=== PATIENT | female | born 1935 | race African-American/Black ===

== ENCOUNTER 2017-08-26 06:46 | Inpatient (IN) | payer OTHER ==
--- NOTE | 2017-08-26 07:01 | PDOC ---
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 Pt has noticed episodic SOB at rest usually relieved with albuterol nebulizer, until this morning when she continued to have SOB despite use of the nebulizer. No cough, no fevers, no increase sputum production. No leg swelling or chest pain. Yesterday, she noticed increased urinary frequency with no hematuria. No change in bowel habits. After she called EMS, she had resolution of her symptoms in the ER. Pt has no pets. She however noticed increased SOB following contact with her new aide (who owns a dog) for the past week. 08/26/17 07:34 08/26/17 07:43 Timing/Duration: changing over time Severity: mild Associated Symptoms: reports: shortness of breath. denies: chest pain, cough, diaphoresis, fever/chills, headaches, nausea/vomiting, seizure, syncope Past History - Past Medical History Allergies/Adverse Reactions: Allergies Allergy/AdvReac Type Severity Reaction Status Date / Time Penicillins Allergy Severe Swelling Verified 08/26/17 07:01 Home Medications: Ambulatory Orders Acetaminophen [Tylenol] 325 mg PO ASDIR PRN 04/03/15 Albuterol Sulfate [Proair Hfa -] 1 - 2 inh PO TID PRN 04/03/15 Alendronate Sodium [Binosto] 70 mg PO WEEKLY 04/03/15 Digoxin [Lanoxin] 125 mcg PO DAILY 04/03/15 Fluticasone/Salmeterol [Advair 250-50 Diskus] 1 each IH BID 04/03/15 Folic Acid 1 mg PO DAILY 04/03/15 Furosemide [Lasix -] 40 mg PO DAILY 04/03/15 Loratadine 10 mg PO DAILY 04/03/15 Potassium Chloride 10 meq PO DAILY 04/03/15 Simvastatin [Zocor -] 20 mg PO HS 04/03/15 Sitagliptin Phosphate [Januvia] 50 mg PO HS 04/03/15 Solifenacin Succinate [Vesicare] 5 mg PO DAILY 04/03/15 predniSONE [Deltasone -] 5 mg PO DAILY 04/03/15 Albuterol 0.083% Nebulizer Wendy [Ventolin 0.083% Nebulizer Soln -] 1 amp IN QID PRN MDD 4 08/26/17 Gabapentin 100 mg PO DAILY 08/26/17 Losartan Potassium 25 mg PO DAILY 08/26/17 Olanzapine 5 mg PO DAILY 08/26/17 Umeclidinium [place] [Incruse Ellipta] 62.5 mcg IH DAILY 08/26/17 Anemia: Yes (WAS PLACED ON IRON,MANY YEARS AGO) Asthma: Yes Cancer: Yes (LEFT MASECTOMY,RIGHT BREAST) Cardiac Disorders: Yes CVA: No COPD: Yes CHF: Yes Dementia: No Diabetes: Yes ("PRE DIABETIC") GI Disorders: No Disorders: No HTN: Yes Hypercholesterolemia: Yes Liver Disease: No Seizures: No Thyroid Disease: No - Surgical History Abdominal Surgery: Yes (PT DOESN'T REMEMBER,MANY YEARS AGO) Appendectomy: No Cardiac Surgery: No Cholecystectomy: No Lung Surgery: No Neurologic Surgery: No Orthopedic Surgery: No - Suicide/Smoking/Psychosocial Hx Smoking Status: Yes Smoking History: Former smoker Have you smoked in the past 12 months: No Number of Cigarettes Smoked Daily: 0 If you are a former smoker, when did you quit?: 2000 Hx Alcohol Use: Yes (STOPPED 1985) Drug/Substance Use Hx: No Substance Use Type: None Hx Substance Use Treatment: No *Physical Exam - Physical Exam General Appearance: Yes: Appropriately Dressed. No: Apparent Distress HEENT: positive: EOMI, ELADIA, Symmetrical, Pharynx Normal, Other (dry mucus membanes) Neck: positive: Supple Respiratory/Chest: positive: Lungs Clear, Normal Breath Sounds. negative: Chest Tender, Respiratory Distress, Labored Respiration, Stridor, Wheezing Cardiovascular: positive: Regular Rate, S1, S2. negative: Murmur Gastrointestinal/Abdominal: positive: Normal Bowel Sounds, Soft, Tenderness ( vague tenderness worse in suprapubic area) Musculoskeletal: positive: CVA Tenderness (R). negative: Vertebral Tenderness Extremity: positive: Other (warm LLE, no pedal edema) Neurologic: positive: Fully Oriented, Alert, Normal Mood/Affect, Motor Strength 5/5 (Globally). negative: Facial Droop, Confused, Disoriented Heart Score/ECG Review - Age Age: >/= 65 - Risk Factors Risk Factors Heart Score: Yes Hx Diabetes - ECG Intrepretation Rhythm: Regular Rhythm (With few PACs) - Raysal Raysal: Normal - ECG Impressions Normal ECG: Yes Bradycardia: No Torsades tien Pointes: No WPW: No Comment:: 08/26/17 09:11 Normal sinus rhythm with premature supraventricular complexes Non specific ST and T wave abnormality Ventricular rate 80bpm, QT/QTc- 350/403 08/26/17 09:13 ED Treatment Course - LABORATORY CBC & Chemistry Diagram: 08/26/17 08:00 08/26/17 08:00 Medical Decision Making - Medical Decision Making 08/26/17 07:45 EKG, CBC, cmp, bnp, ekg, lle DUPLEX,trops, UA, urine culture, CXR Considering her age and PMHx, R/O atypical WA, PNA 08/26/17 07:52 CXR- no acute chest pathology seen 08/26/17 08:25 EKG- Sinus rhythm with premature supraventricular complexes Non secific ST and T wave abnormality Ventricular rate 80bpm QT/QTc- 350/403 08/26/17 09:14 Mild Hypernatremia- 147 and hyperchloremia-107 Awaiting BNP for fluid status 08/26/17 09:17 BUN/Cr-24/1.4 08/26/17 09:24 Will give 250mls Normal saline- pt looks clinically dry and in PRIETO, although on home lasix Will keep as ED obs Med surg, to follow for hydration state with repeat BMP, and repeat Pulmonary exam 08/26/17 09:33 Duplex of LLE - negative Pending UA- with R CVA tenderness, suprapubic tenderness and increased urinary frequency 08/26/17 09:[address] Hicks's service and spoke with Dr Enrique. She thinks patient is dehydrated, agrees with fluid and we will call her back in about 10mins to determine service for _observation - Med surg 08/26/17 10:37 Dr Enrique recommends 1/2 normal saline and admission under Dr Reese who she spoke with already Pt will be obs admission Med Surg *DC/Admit/Observation/Transfer Diagnosis at time of Disposition: SOB (shortness of breath), Hypernatremia - Discharge Dispostion Admit: Yes - Referrals Referrals: ON STAFF,NOT [Primary Care Provider] - - Patient Instructions - Post Discharge Activity - Attestations Physician Attestion: 08/26/17 10:37 Maddie Lazar MD
--- NOTE | 2017-08-26 07:21 | PDOC ---
Attending Attestation - HPI HPI: 08/26/17 08:02 The patient is a 82 year old female, with a significant past medical history of NIDDM, right breast mass excision (January 2017) , asthma/COPD 2L O2 at home, who presents to the emergency department with progressive shortness of breath for about a week. She reported use of albuterol nebulizer nightly with minimal relief since onset. She states she used a treatment this morning, but became worried when she did not notice improvement of her breathing and called ems. She states she is feeling slightly better now when compare to when she first woke up this morning. Secondarily, she reports urinary frequency. She denies chest pain, headache and dizziness. She denies fever, chills, nausea , vomit, diarrhea and constipation. She denies dysuria, urgency and hematuria. Allergies: Penicillins - Physicial Exam PE: 08/26/17 08:12 Vitals: Triage vital signs reviewed General Appearance: No acute distress, well nourished, well developed Head: Atraumatic Eyes: Pupils equal reactive round, extraocular movement intact Neck: Supple; No nuchal rigidity Chest Wall: Nontender Cardiac: (+) systolic ejection murmur. Regular rate and rhythm, no rubs, no gallops Lungs: Clear to auscultation bilateral, good air movement bilaterally Abdomen: Soft, nondistended, normal bowel sounds, nontender to palpation Extremities: (+) left lower extremity slightly larger than right LE. No pitting edema. Full range of motion to all extremities, no cyanosis, clubbing Skin: Warm and dry, no rashes or lesions, no rash, no petechiae Neuro: AOX3; Cranial Nerves 2-12 grossly intact, Strength intact to all extremities, Sensation intact to all extremities, Psych: Normal mood, normal affect - Medical Decision Making 08/26/17 08:04 Documentation prepared by Sera Colin, acting as medical assembly for Chema Oliva MD, 08/26/17 08:05 The patient is a 82 year old female, with a significant past medical history of NIDDM, right breast mass excision (January 2017), asthma/COPD 2L O2 at home, who presents to the emergency department with shortness of breath for about a week. Plan: EKG, Labs, Medications, CXR, left LE US r/o DVT 08/26/17 09:35 CXR is normal, LE duplex negative, plan for Med-Surg Obs placement for repeat labs. 08/26/17 09:48 Dr. Hicks's service was called at this time. Dr. Barajas termite control technician spoke with Dr. Lazar, Resident at 9:49 08/26/17 10:[address] 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 Carli Rome service. <Sera Colin - Last Filed: 08/26/17 10:09> - Resident Resident Name: Maddie Lazar I - ED Attending Attestation I have performed the following: I have examined & evaluated the patient, The case was reviewed & discussed with the resident, I agree w/resident's findings & plan, Exceptions are as noted - Medical Decision Making Patient with elevated creatinine. Given history of CHF and acute kidney injury case discussed with patient's pipelines supervisor. We'll observe overnight for gentle hydration with half-normal saline and reevaluation <Chema Oliva - Last Filed: 08/26/17 12:10> Heart Score/ECG Review - ECG Impressions Comment:: 08/26/17 12:09 EKG performed at 7:23 AM. Demonstrates sinus rhythm with occasional supraventricular complexes. No ST elevations no T-wave inversions. <Chema Oliva - Last Filed: 08/26/17 12:10>
[2017-08-26 08:19] LABS: HEMATOCRIT 35.8 % (32.4-45.2); MCH 28.6 pg (25.7-33.7); MCHC 33.5 g/dl (32.0-36.0); MEAN CELL VOLUME 85.5 fl (80-96); RBC 4.19 M/mm3 (3.60-5.2); RDW 15.9 % (11.6-15.6); WHITE BLOOD COUNT 10.6 K/mm3 (4.0-10.0)
[2017-08-26 08:34] LABS: ALBUMIN 3.9 g/dl (3.4-5.0); ANION GAP 6 (8-16); BILIRUBIN,TOTAL 0.4 mg/dL (0.2-1.0); BLOOD UREA NITROGEN 24 mg/dL (7-18); CALCIUM 9.3 mg/dL (8.5-10.1); CHLORIDE 109 mmol/L (98-107); CO2 32 mmol/L (21-32); CREATININE 1.4 mg/dL (0.55-1.02); GLUCOSE,RANDOM 90 mg/dL (74-106); POTASSIUM 3.5 mmol/L (3.5-5.1); SGOT/AST 27 U/L (15-37); SGPT/ALT 35 U/L (12-78); SODIUM 147 mmol/L (136-145); TOT PROT 7.1 g/dl (6.4-8.2)
[2017-08-26 08:35] LABS: ALK PHOS 52 U/L (45-117)
[2017-08-26] MEDS ORDERED: SODIUM CHLORIDE 250 ML IV STA (09:32)
[2017-08-26 10:02] LABS: N-TERMINAL BNP 372.25 pg/ml (5-450)
[2017-08-26 10:16] LABS: PLATELET ESTIMATE ADEQUATE
[2017-08-26] MEDS: SODIUM CHLORIDE 0.45% 1,000 ML IV SCH (11:29)
[2017-08-26] MEDS ORDERED: methylPREDNISolone NA SUCC 1000 MG/8 ML VIAL IVPB SCH (12:30)
[2017-08-26] MEDS ORDERED: methylPREDNISolone NA SUCC 1000 MG/8 ML VIAL IVPUSH SCH (12:34)
--- NOTE | 2017-08-26 12:34 | HP ---
Admitting History and Physical - Primary Care Physician PCP: Samantha Hicks - Admission Chief Complaint: dyspnea History of Present Illness: progressively worsening dyspnea for 4-5 days, despite nebulizer use. on home o2 lives alone no fever, no chills, no chest pain, no cough - Past Medical History Cardiovascular: Yes: CHF, HTN Pulmonary: Yes: Cancer (left breast cancer (1977)), COPD (oxygen dependent), O2 Dependent Endocrine: Yes: Diabetes Mellitus - Past Surgical History Past Surgical History: Yes: Mastectomy - Smoking History Smoking history: Former smoker Have you smoked in the past 12 months: No Aproximately how many cigarettes per day: 0 If you are a former smoker, when did you quit?: 2000 - Alcohol/Substance Use Hx Alcohol Use: Yes (STOPPED 1985) - Social History Usual Living Arrangement: Yes: Alone History of Recent Travel: No Home Medications - Allergies Allergies/Adverse Reactions: Allergies Allergy/AdvReac Type Severity Reaction Status Date / Time Penicillins Allergy Severe Swelling Verified 08/26/17 07:01 - Home Medications Home Medications: Ambulatory Orders Acetaminophen [Tylenol] 325 mg PO ASDIR PRN 04/03/15 Albuterol Sulfate [Proair Hfa -] 1 - 2 inh PO TID PRN 04/03/15 Alendronate Sodium [Binosto] 70 mg PO WEEKLY 04/03/15 Digoxin [Lanoxin] 125 mcg PO DAILY 04/03/15 Fluticasone/Salmeterol [Advair 250-50 Diskus] 1 each IH BID 04/03/15 Folic Acid 1 mg PO DAILY 04/03/15 Furosemide [Lasix -] 40 mg PO DAILY 04/03/15 Loratadine 10 mg PO DAILY 04/03/15 Potassium Chloride 10 meq PO DAILY 04/03/15 Simvastatin [Zocor -] 20 mg PO HS 04/03/15 Sitagliptin Phosphate [Januvia] 50 mg PO HS 04/03/15 Solifenacin Succinate [Vesicare] 5 mg PO DAILY 04/03/15 predniSONE [Deltasone -] 5 mg PO DAILY 04/03/15 Albuterol 0.083% Nebulizer Wendy [Ventolin 0.083% Nebulizer Soln -] 1 amp IN QID PRN MDD 4 08/26/17 Gabapentin 100 mg PO DAILY 08/26/17 Losartan Potassium 25 mg PO DAILY 08/26/17 Olanzapine 5 mg PO DAILY 08/26/17 Umeclidinium [place] [Incruse Ellipta] 62.5 mcg IH DAILY 08/26/17 Family Disease History - Family Disease History Family Disease History: CA: Brother (prostate cancer) Review of Systems - Review of Systems Constitutional: reports: Loss of Appetite. denies: Chills, Fever, Weakness Eyes: denies: No Symptoms HENT: denies: No Symptoms Cardiovascular: denies: Chest Pain, Palpitations Respiratory: reports: SOB on Exertion. denies: Hemoptysis, Wheezing Gastrointestinal: reports: No Symptoms Musculoskeletal: reports: No Symptoms Integumentary: reports: No Symptoms Neurological: reports: No Symptoms Hematology/Lymphatic: reports: No Symptoms Psychiatric: reports: No Symptoms Physical Examination Vital Signs: Vital Signs Temperature 98.5 F 08/26/17 11:33 Pulse Rate 73 08/26/17 11:33 Respiratory Rate 18 08/26/17 11:33 Blood Pressure 124/74 08/26/17 11:33 O2 Sat by Pulse Oximetry (%) 100 08/26/17 11:33 Constitutional: Yes: Well Nourished, No Distress Eyes: Yes: Conjunctiva Clear, EOM Intact HENT: Yes: Normocephalic Neck: Yes: Trachea Midline Cardiovascular: Yes: Regular Rate and Rhythm Respiratory: Yes: On Nasal O2, SOB on Exertion, Other (poor insiratory effort) Gastrointestinal: Yes: Normal Bowel Sounds, Soft Musculoskeletal: Yes: WNL Extremities: Yes: WNL Edema: No Peripheral Pulses WNL: Yes Neurological: Yes: WNL ...Motor Strength: WNL Labs: CBC, BMP 08/26/17 08:00 08/26/17 08:00 Abnormal Lab Results 08/26/17 08/26/17 08:00 08:00 WBC 10.6 H RDW 15.9 H Sodium 147 H Chloride 109 H Anion Gap 6 L BUN 24 H Creatinine 1.4 H Creatine Kinase 215 H Imaging - Results X-ray: Report Reviewed (no infiltrate) Problem List - Problems (1) Hypertension Code(s): I10 - ESSENTIAL (PRIMARY) HYPERTENSION Qualifiers: Hypertension type: essential hypertension Qualified Code(s): I10 - Essential (primary) hypertension (2) Diabetes mellitus Code(s): E11.9 - TYPE 2 DIABETES MELLITUS WITHOUT COMPLICATIONS Qualifiers: Diabetes mellitus type: type 2 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
--- NOTE | 2017-08-26 12:56 | EKG ---
Test Reason : Blood Pressure : / mmHG Vent. Rate : 080 BPM Atrial Rate : 080 BPM P-R Int : 152 ms QRS Dur : 084 ms QT Int : 350 ms P-R-T Axes : 079 039 064 degrees QTc Int : 403 ms SINUS RHYTHM WITH PREMATURE SUPRAVENTRICULAR COMPLEXES NONSPECIFIC ST AND T WAVE ABNORMALITY ABNORMAL ECG WHEN COMPARED WITH ECG OF 26-JAN-2012 09:48, PREMATURE SUPRAVENTRICULAR COMPLEXES ARE NOW PRESENT NONSPECIFIC T WAVE ABNORMALITY, IMPROVED IN LATERAL LEADS Confirmed by YG BROWN MD ([id number]) on 08/26/2017 12:56:38 PM Referred By: Confirmed By:YG BROWN MD
[2017-08-26] MEDS ORDERED: ACETAMINOPHEN 325 MG TABLET (FP) PO PRN (13:00)
--- NOTE | 2017-08-26 14:14 | CON.PULM ---
Consult Consult Specialty:: PULMONARY Referred by:: Dr. Donovan Reason for Consultation:: shortness of breath - History of Present Illness Chief Complaint: shortness of breath History of Present Illness: 82yo female with h/o DM, CHF, COPD, chronic hypoxic respiratory failure on home O2, h/o breast ca s/p resection who was admitted with worsening shortness of breath x 1 week. Denies chest pain or palpitations or cough but with increased wheezing. No fevers, chills or sweats. No sick contacts or recent travel. Lives alone. She is a remote smoker but did smoke about 1 PPD for a long time. She used her nebulizer at home without significant relief. Also maintained at home on Incruse and Advair. - History Source History Provided By: Patient, Medical Record Limitations to Obtaining History: No Limitations - Past Medical History Cardio/Vascular: Yes: CHF, HTN Pulmonary: Yes: Cancer (left breast cancer (1977)), COPD (oxygen dependent), O2 Dependent Endocrine: Yes: Diabetes Mellitus - Past Surgical History Past Surgical History: Yes: Mastectomy - Alcohol/Substance Use Hx Alcohol Use: Yes (STOPPED 1985) - Smoking History Smoking history: Former smoker Have you smoked in the past 12 months: No Aproximately how many cigarettes per day: 0 If you are a former smoker, when did you quit?: 2000 - Social History History of Recent Travel: No Home Medications - Allergies Allergies/Adverse Reactions: Allergies Allergy/AdvReac Type Severity Reaction Status Date / Time Penicillins Allergy Severe Swelling Verified 08/26/17 07:01 - Home Medications Home Medications: Ambulatory Orders Acetaminophen [Tylenol] 325 mg PO ASDIR PRN 04/03/15 Albuterol Sulfate [Proair Hfa -] 1 - 2 inh PO TID PRN 04/03/15 Alendronate Sodium [Binosto] 70 mg PO WEEKLY 04/03/15 Digoxin [Lanoxin] 125 mcg PO DAILY 04/03/15 Fluticasone/Salmeterol [Advair 250-50 Diskus] 1 each IH BID 04/03/15 Folic Acid 1 mg PO DAILY 04/03/15 Furosemide [Lasix -] 40 mg PO DAILY 04/03/15 Loratadine 10 mg PO DAILY 04/03/15 Potassium Chloride 10 meq PO DAILY 04/03/15 Simvastatin [Zocor -] 20 mg PO HS 04/03/15 Sitagliptin Phosphate [Januvia] 50 mg PO HS 04/03/15 Solifenacin Succinate [Vesicare] 5 mg PO DAILY 04/03/15 predniSONE [Deltasone -] 5 mg PO DAILY 04/03/15 Albuterol 0.083% Nebulizer Wendy [Ventolin 0.083% Nebulizer Soln -] 1 amp IN QID PRN MDD 4 08/26/17 Gabapentin 100 mg PO DAILY 08/26/17 Losartan Potassium 25 mg PO DAILY 08/26/17 Olanzapine 5 mg PO DAILY 08/26/17 Umeclidinium [place] [Incruse Ellipta] 62.5 mcg IH DAILY 08/26/17 Family Disease History - Family Disease History Family Disease History: CA: Brother (prostate cancer) Review of Systems - Review of Systems Constitutional: reports: Weakness. denies: Chills, Fever Eyes: denies: Recent Change in Vision HENT: denies: Nasal Congestion, Throat Pain Neck: denies: Stiffness, Tenderness Cardiovascular: reports: Shortness of Breath. denies: Chest Pain, Edema, Palpitations Respiratory: reports: Exercise Intolerance, SOB, SOB on Exertion, Wheezing. denies: Cough, Hemoptysis Gastrointestinal: denies: Abdominal Pain, Nausea, Vomiting Genitourinary: denies: Dysuria, Hematuria Neurological: denies: Dizziness, Headache Physical Exam Vital Sings: Vital Signs Temperature 98.5 F 08/26/17 11:33 Pulse Rate 73 08/26/17 11:33 Respiratory Rate 18 08/26/17 11:33 Blood Pressure 124/74 08/26/17 11:33 O2 Sat by Pulse Oximetry (%) 100 08/26/17 11:33 Constitutional: Yes: Calm Eyes: Yes: Conjunctiva Clear, EOM Intact HENT: Yes: Atraumatic, Normocephalic Neck: Yes: Supple, Trachea Midline Cardiovascular: Yes: Regular Rate and Rhythm Respiratory: Yes: Diminished (distant breath sounds). No: Wheezes ...Clubbing: No Gastrointestinal: Yes: Normal Bowel Sounds, Soft. 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
[2017-08-26 15:01] LABS: URINE APPEARANCE CLEAR; URINE BILIRUBIN NEGATIVE (<2.0 mg/dL); URINE COLOR LTYELLOW; URINE GLUCOSE (UA) NEGATIVE (NEGATIVE); URINE KETONE NEGATIVE (NEGATIVE); URINE LEUK ESTERASE NEGATIVE (NEGATIVE); URINE NITRITE NEGATIVE (NEGATIVE); URINE PROTEIN NEGATIVE (NEGATIVE); URINE UROBILINOGEN NEGATIVE mg/dL (0.2-1.0)
[2017-08-26] MEDS: ALBUTEROL SO4 0.083% IH SOL 2.5 MG/3 ML VIAL.NEB. NEB PRN (16:38)
--- NOTE | 2017-08-26 16:50 | CON.CARD ---
Consult Consult Specialty:: Cardiology Reason for Consultation:: sob - History of Present Illness History of Present Illness: Pt is an 82yo F with PMHx of DM, CHF, asthma/COPD (2L home oxygen) and R breast excision (Apr 2017) presenting with recurrent worsening SOB x 1 week. Pt has noticed episodic SOB at rest usually relieved with albuterol nebulizer, until this morning when she continued to have SOB despite use of the nebulizer. No cough, no fevers, no increase sputum production. No leg swelling or chest pain. Yesterday, she noticed increased urinary frequency with no hematuria. No change in bowel habits. After she called EMS, she had resolution of her symptoms in the ER. Pt has no pets. She however noticed increased SOB following contact with her new aide (who owns a dog) for the past week. - History Source History Provided By: Patient, Medical Record - Past Medical History Cardio/Vascular: Yes: Aortic Insufficiency, Aortic Stenosis, CHF, HTN, Mitral Stenosis Pulmonary: Yes: Cancer (left breast cancer (1977)), COPD (oxygen dependent), O2 Dependent Endocrine: Yes: Diabetes Mellitus - Past Surgical History Past Surgical History: Yes: Mastectomy - Alcohol/Substance Use Hx Alcohol Use: Yes (STOPPED 1985) - Smoking History Smoking history: Former smoker Have you smoked in the past 12 months: No Aproximately how many cigarettes per day: 0 If you are a former smoker, when did you quit?: 2000 - Social History History of Recent Travel: No Home Medications - Allergies Allergies/Adverse Reactions: Allergies Allergy/AdvReac Type Severity Reaction Status Date / Time Penicillins Allergy Severe Swelling Verified 08/26/17 07:01 - Home Medications Home Medications: Ambulatory Orders Acetaminophen [Tylenol] 325 mg PO ASDIR PRN 04/03/15 Albuterol Sulfate [Proair Hfa -] 1 - 2 inh PO TID PRN 04/03/15 Alendronate Sodium [Binosto] 70 mg PO WEEKLY 04/03/15 Digoxin [Lanoxin] 125 mcg PO DAILY 04/03/15 Fluticasone/Salmeterol [Advair 250-50 Diskus] 1 each IH BID 04/03/15 Folic Acid 1 mg PO DAILY 04/03/15 Furosemide [Lasix -] 40 mg PO DAILY 04/03/15 Loratadine 10 mg PO DAILY 04/03/15 Potassium Chloride 10 meq PO DAILY 04/03/15 Simvastatin [Zocor -] 20 mg PO HS 04/03/15 Sitagliptin Phosphate [Januvia] 50 mg PO HS 04/03/15 Solifenacin Succinate [Vesicare] 5 mg PO DAILY 04/03/15 predniSONE [Deltasone -] 5 mg PO DAILY 04/03/15 Albuterol 0.083% Nebulizer Wendy [Ventolin 0.083% Nebulizer Soln -] 1 amp IN QID PRN MDD 4 08/26/17 Gabapentin 100 mg PO DAILY 08/26/17 Losartan Potassium 25 mg PO DAILY 08/26/17 Olanzapine 5 mg PO DAILY 08/26/17 Umeclidinium Pearson [Incruse Ellipta] 62.5 mcg IH DAILY 08/26/17 Family Disease History - Family Disease History Family Disease History: CA: Brother (prostate cancer) Review of Systems - Review of Systems Constitutional: reports: No Symptoms Eyes: reports: No Symptoms HENT: reports: No Symptoms Neck: reports: No Symptoms Cardiovascular: reports: No Symptoms Respiratory: reports: SOB, SOB on Exertion Gastrointestinal: reports: No Symptoms Genitourinary: reports: No Symptoms Breasts: reports: No Symptoms Reported Musculoskeletal: reports: No Symptoms Integumentary: reports: No Symptoms Neurological: reports: No Symptoms Endocrine: reports: No Symptoms Hematology/Lymphatic: reports: No Symptoms Psychiatric: reports: No Symptoms Vital Signs: Vital Signs Temperature 97.8 F 08/26/17 14:24 Pulse Rate 80 08/26/17 14:24 Respiratory Rate 18 08/26/17 14:24 Blood Pressure 132/69 08/26/17 14:24 O2 Sat by Pulse Oximetry (%) 100 08/26/17 11:33 Constitutional: Yes: Well Nourished, No Distress, Calm Eyes: Yes: WNL, Conjunctiva Clear, EOM Intact HENT: Yes: WNL, Atraumatic, Normocephalic Neck: Yes: WNL, Supple, Trachea Midline Respiratory: Yes: WNL, Regular, CTA Bilaterally Gastrointestinal: Yes: WNL, Normal Bowel Sounds Renal/: Yes: WNL Cardiovascular: Yes: Regular Rate and Rhythm Heart Sounds: Yes: S1, S2 Murmur: Yes: Systolic Murmur, Diastolic Murmur Musculoskeletal: Yes: WNL Extremities: Yes: WNL Integumentary: Yes: WNL Neurological: Yes: WNL, Alert, Oriented ...Motor Strength: WNL Psychiatric: Yes: WNL, Alert, Oriented - Other Data Labs, Other Data: CBC, BMP 08/26/17 08:00 08/26/17 08:00 Troponin, BNP 08/26/17 08/26/17 08:00 13:20 Troponin I 0.05 0.08 H B-Natriuretic Peptide 372.25 Troponin, BNP 08/26/17 08/26/17 08:00 13:20 Troponin I 0.05 0.08 H B-Natriuretic Peptide 372.25 Imaging - Results Chest X-ray: Image Reviewed (no changes) EKG: Image Reviewed (sr apcs nonspec rep abn) Problem List - Problems (1) COPD (chronic obstructive pulmonary disease) Code(s): J44.9 - CHRONIC OBSTRUCTIVE PULMONARY DISEASE, UNSPECIFIED Qualifiers: COPD type: COPD with acute exacerbation Qualified Code(s): J44.1 - Chronic obstructive pulmonary disease with (acute) exacerbation (2) COPD exacerbation Code(s): J44.1 - CHRONIC OBSTRUCTIVE PULMONARY DISEASE W (ACUTE) EXACERBATION (3) Chronic respiratory failure with hypoxia Code(s): J96.11 - CHRONIC RESPIRATORY FAILURE WITH HYPOXIA (4) Dehydration Code(s): E86.0 - DEHYDRATION (5) Diabetes mellitus Code(s): E11.9 - TYPE 2 DIABETES MELLITUS WITHOUT COMPLICATIONS Qualifiers: Diabetes mellitus type: type 2 Diabetes mellitus [facility] insulin use: without termination clerk use (6) Hypernatremia Code(s): E87.0 - HYPEROSMOLALITY AND HYPERNATREMIA (7) Hypertension Code(s): I10 - ESSENTIAL (PRIMARY) HYPERTENSION Qualifiers: Hypertension type: essential hypertension Qualified Code(s): I10 - Essential (primary) hypertension (8) SOB (shortness of breath) Code(s): R06.02 - SHORTNESS OF BREATH (9) Breast cancer, right Code(s): C50.911 - MALIGNANT NEOPLASM OF UNSP SITE OF RIGHT FEMALE BREAST Qualifiers: Breast location: central portion of breast Assessment/Plan COPD exacorbation no signs of decompensated CHF - bnp wnl valvular hertt ds moderate MS moderate moderate AR DM HTN prerenal azotemia breast CA borderline elevation of TNI's Plan d/c digoxin pulmonary rx watch for chf decompensation f/u ekg and CE
[2017-08-26] MEDS: methylPREDNISolone NA SUCC 125 MG/2 ML VIAL IVPUSH SCH (18:54)
[2017-08-26] MEDS: ATORVASTATIN CA 10 MG TABLET (FP) PO SCH (21:18)
[2017-08-26] MEDS ORDERED: sitaGLIPtin PHOSPHATE 50 MG TABLET PO SCH (22:00)
[2017-08-27] MEDS: methylPREDNISolone NA SUCC 125 MG/2 ML VIAL IVPUSH SCH (01:00)
[2017-08-27] MEDS: SODIUM CHLORIDE 0.45% 1,000 ML IV SCH (03:27)
[2017-08-27 07:32] LABS: BASO % 0.1 % (0-2.0); HEMATOCRIT 34.2 % (32.4-45.2); HEMOGLOBIN 11.6 GM/dL (10.7-15.3); LYMPH % 7.1 % (8-40); MEAN CELL VOLUME 85.3 fl (80-96); MEAN PLT VOLUME 9.5 fl (7.5-11.1); MONO % 0.7 % (3.8-10.2); NEUT % 92.1 % (42.8-82.8); PLATELET COUNT 135 K/MM3 (134-434); RBC 4.01 M/mm3 (3.60-5.2); RDW 15.3 % (11.6-15.6); WHITE BLOOD COUNT 6.3 K/mm3 (4.0-10.0)
[2017-08-27 08:09] LABS: ALBUMIN 3.4 g/dl (3.4-5.0); ALK PHOS 50 U/L (45-117); ANION GAP 5 (8-16); BILIRUBIN,TOTAL 0.6 mg/dL (0.2-1.0); BLOOD UREA NITROGEN 24 mg/dL (7-18); CALCIUM 8.5 mg/dL (8.5-10.1); CHLORIDE 109 mmol/L (98-107); CO2 29 mmol/L (21-32); CREATININE 1.1 mg/dL (0.55-1.02); GLUCOSE,RANDOM 141 mg/dL (74-106); POTASSIUM 3.9 mmol/L (3.5-5.1); SGOT/AST 24 U/L (15-37); SGPT/ALT 32 U/L (12-78); SODIUM 143 mmol/L (136-145); TOT PROT 6.5 g/dl (6.4-8.2)
--- NOTE | 2017-08-27 08:20 | PN ---
Progress Note (short form) - Note Progress Note: feels much better, denies dyspnea CBC, BMP 08/27/17 06:00 08/27/17 06:00 Abnormal Lab Results 08/26/17 08/26/17 08/26/17 08:00 08:00 13:20 WBC 10.6 H RDW 15.9 H Neutrophils % Lymphocytes % Monocytes % Sodium 147 H Chloride 109 H Anion Gap 6 L BUN 24 H Creatinine 1.4 H Random Glucose Creatine Kinase 215 H 264 H CK-MB (CK-2) 3.610 H Troponin I 0.08 H Digoxin 0.4434 L 08/27/17 08/27/17 06:00 06:00 WBC RDW Neutrophils % 92.1 H Lymphocytes % 7.1 L Monocytes % 0.7 L Sodium Chloride 109 H Anion Gap 5 L BUN 24 H Creatinine 1.1 H Random Glucose 141 H Creatine Kinase CK-MB (CK-2) Troponin I Digoxin Vital Signs Period Temp Pulse Resp BP Sys/[place] Pulse Ox Last 24 Hr 97.7 F-98.5 F 73-81 18-18 124-143/69-74 96-100 S1S2 RRR lungs cta, improved aeration abd soft no edema awake alert nonfocal IMp acute COPD exacerbation HTN NIDDM CHF chronic-awaiting echo dehydration Plan steroid taper dc iv fluids at noon today physical therapy if well can switch to po prednisone in am Problem List - Problems (1) Hypertension Code(s): I10 - ESSENTIAL (PRIMARY) HYPERTENSION Qualifiers: Hypertension type: essential hypertension Qualified Code(s): I10 - Essential (primary) hypertension (2) Diabetes mellitus Code(s): E11.9 - TYPE 2 DIABETES MELLITUS WITHOUT COMPLICATIONS Qualifiers: Diabetes mellitus type: type 2 Diabetes mellitus fpc insulin use: without fpc use (3) COPD (chronic obstructive pulmonary disease) Code(s): J44.9 - CHRONIC OBSTRUCTIVE PULMONARY DISEASE, UNSPECIFIED Qualifiers: COPD type: COPD with acute exacerbation Qualified Code(s): J44.1 - Chronic obstructive pulmonary disease with (acute) exacerbation (4) SOB (shortness of breath) Code(s): R06.02 - SHORTNESS OF BREATH (5) Dehydration Code(s): E86.0 - DEHYDRATION
[2017-08-27] MEDS: POTASSIUM CHLORIDE ORAL LIQUID 20 MEQ/15 ML PO SCH (09:49)
[2017-08-27] MEDS: LORATADINE 10 MG TABLET PO SCH (09:49)
[2017-08-27] MEDS: FOLIC ACID 1 MG TABLET (FP) PO SCH (09:49)
[2017-08-27] MEDS: LOSARTAN POTASSIUM 25 MG TABLET PO SCH (09:49)
[2017-08-27] MEDS: GABAPENTIN 100 MG CAPSULE (FP) PO SCH (09:49)
[2017-08-27] MEDS: RANITIDINE HCL 150 MG TABLET (FP) PO SCH (09:49)
[2017-08-27 09:50] VITALS: BMI 20.2
--- NOTE | 2017-08-27 09:50 | CON.NEP ---
Consult Consult Specialty:: NEPHROLOGY - History of Present Illness Chief Complaint: DYSPNEA 4 DAYS History of Present Illness: 82 WITH COPD EX SMOKER IN WITH SOB X RAY CLEAR NA 147 ON HOME O2 - History Source History Provided By: Patient - Past Medical History Cardio/Vascular: Yes: CHF, HTN Pulmonary: Yes: Cancer (left breast cancer (1977)), COPD (oxygen dependent), O2 Dependent Endocrine: Yes: Diabetes Mellitus - Past Surgical History Past Surgical History: Yes: Mastectomy - Alcohol/Substance Use Hx Alcohol Use: Yes (STOPPED 1985) - Smoking History Smoking history: Former smoker Have you smoked in the past 12 months: No Aproximately how many cigarettes per day: 0 If you are a former smoker, when did you quit?: 2000 - Social History Usual Living Arrangement: Other (CLOSEST PERSON BROTHER HAS AN AID) History of Recent Travel: No Home Medications - Allergies Allergies/Adverse Reactions: Allergies Allergy/AdvReac Type Severity Reaction Status Date / Time Penicillins Allergy Severe Swelling Verified 08/26/17 07:01 - Home Medications Home Medications: Ambulatory Orders Acetaminophen [Tylenol] 325 mg PO ASDIR PRN 04/03/15 Albuterol Sulfate [Proair Hfa -] 1 - 2 inh PO TID PRN 04/03/15 Alendronate Sodium [Binosto] 70 mg PO WEEKLY 04/03/15 Digoxin [Lanoxin] 125 mcg PO DAILY 04/03/15 Fluticasone/Salmeterol [Advair 250-50 Diskus] 1 each IH BID 04/03/15 Folic Acid 1 mg PO DAILY 04/03/15 Furosemide [Lasix -] 40 mg PO DAILY 04/03/15 Loratadine 10 mg PO DAILY 04/03/15 Potassium Chloride 10 meq PO DAILY 04/03/15 Simvastatin [Zocor -] 20 mg PO HS 04/03/15 Sitagliptin Phosphate [Januvia] 50 mg PO HS 04/03/15 Solifenacin Succinate [Vesicare] 5 mg PO DAILY 04/03/15 predniSONE [Deltasone -] 5 mg PO DAILY 04/03/15 Albuterol 0.083% Nebulizer Wendy [Ventolin 0.083% Nebulizer Soln -] 1 amp IN QID PRN MDD 4 08/26/17 Gabapentin 100 mg PO DAILY 08/26/17 Losartan Potassium 25 mg PO DAILY 08/26/17 Olanzapine 5 mg PO DAILY 08/26/17 Umeclidinium Jarreau [Incruse Ellipta] 62.5 mcg IH DAILY 08/26/17 Family Disease History - Family Disease History Family Disease History: CA: Brother (prostate cancer) Nephrology Consult - Height Height: 5 ft 3 in - Weight Weight: 114 lb 4 oz - BMI Body Mass Index (BMI): 20.2 - Lab Results CBC,BMP: CBC, BMP 08/27/17 06:00 08/27/17 06:00 Anion Gap: Anion Gap Anion Gap 5 (8-16) L 08/27/17 06:00 - Imaging Chest X-ray: Report Reviewed - Physical Examination Vital Signs: Vital Signs Temperature 97.8 F 08/26/17 21:17 Pulse Rate 81 08/26/17 21:17 Respiratory Rate 18 08/26/17 23:47 Blood Pressure 143/69 08/26/17 21:17 O2 Sat by Pulse Oximetry (%) 96 08/26/17 23:47 Respiratory: Yes: Other (DECREASED AIR ENTRY BILATERALLY) Edema: No Assessment/Plan 82 WITH COPD EXACERBATION ON STEROIDS NEBS PRERENAL AZOTEMIA RESOLVED DC FLUIDS ENCOURAGE PO INTAKE OOB PT EVAL WILL FOLLOW NEEDED
[2017-08-27] MEDS: ALBUTEROL SO4 0.083% IH SOL 2.5 MG/3 ML VIAL.NEB. NEB PRN ×2 (09:52→20:44)
[2017-08-27] MEDS: SOLIFENACIN SUCCINATE 5 MG TAB (FP) PO SCH (09:54)
[2017-08-27] MEDS ORDERED: PT OWN MED DRAWER 7, Y5N ONE (09:54)
[2017-08-27] MEDS: OLANZapine 5 MG TABLET PO SCH (09:58)
[2017-08-27] MEDS ORDERED: DIGOXIN 0.125 MG TABLET (FP) PO SCH (10:00)
[2017-08-27] MEDS ORDERED: methylPREDNISolone NA SUCC 40 MG/1 ML VIAL IVPUSH SCH (10:00)
--- NOTE | 2017-08-27 11:35 | PN ---
Progress Note (short form) - Note Progress Note: PULMONARY VSS/AFEBRILE ANICTERIC/EDENTULOUS DIMINISHED BREATH SOUNDS S1S2 BS+ SOFT NO EDEMA LABS/MEDS/IMAGES/NOTES REVIEWED Acute COPD Exacerbation Chronic Hypoxic Respiratory Failure CHF HTN DM Hypercholesterolemia h/o Breast Ca - - have discontinued medrol - prednisone started - inhaled bronchodilators standing and PRN - O2 to keep SpO2 >90% - glucose controll while on systemic steroids - DVT prophylaxis - no objection to SNF rehab today Mian HINDS MD
--- NOTE | 2017-08-27 14:22 | PN ---
Progress Note, Physician History of Present Illness: Pt is an 82yo F with PMHx of DM, CHF, asthma/COPD (2L home oxygen) and R breast excision (Apr 2017) presenting with recurrent worsening SOB x 1 week. Pt has noticed episodic SOB at rest usually relieved with albuterol nebulizer, until this morning when she continued to have SOB despite use of the nebulizer. No cough, no fevers, no increase sputum production. No leg swelling or chest pain. Yesterday, she noticed increased urinary frequency with no hematuria. No change in bowel habits. After she called EMS, she had resolution of her symptoms in the ER. Pt has no pets. She however noticed increased SOB following contact with her new aide (who owns a dog) for the past week. - Current Medication List Current Medications: Active Medications Acetaminophen (Tylenol -) 325 mg PO Q6H PRN PRN Reason: PAIN Albuterol Sulfate (Ventolin 0.083% Nebulizer Soln -) 1 amp NEB QID PRN PRN Reason: SHORTNESS OF BREATH Last Admin: 08/27/17 09:52 Dose: 1 amp Atorvastatin Calcium (Lipitor -) 10 mg PO HS [facility] Last Admin: 08/26/17 21:18 Dose: 10 mg Digoxin (Lanoxin -) 0.125 mg PO DAILY [facility] Last Admin: 08/27/17 09:49 Dose: 0.125 mg Folic Acid (Folic Acid -) 1 mg PO DAILY [facility] Last Admin: 08/27/17 09:49 Dose: 1 mg Gabapentin (Neurontin -) 100 mg PO DAILY [facility] Last Admin: 08/27/17 09:49 Dose: 100 mg Loratadine (Claritin -) 10 mg PO DAILY [facility] Last Admin: 08/27/17 09:49 Dose: 10 mg Losartan Potassium (Cozaar -) 25 mg PO DAILY [facility] Last Admin: 08/27/17 09:49 Dose: 25 mg Olanzapine (Zyprexa -) 5 mg PO DAILY [facility] Last Admin: 08/27/17 09:58 Dose: 5 mg Potassium Chloride (Potassium Chloride Oral Liquid) 10 meq PO DAILY [facility] Last Admin: 08/27/17 09:49 Dose: 10 meq Prednisone (Deltasone -) 40 mg PO DAILY [facility] Ranitidine HCl (Zantac -) 150 mg PO DAILY [facility] Last Admin: 08/27/17 09:49 Dose: 150 mg Solifenacin (Vesicare -) 5 mg PO DAILY [facility] Last Admin: 08/27/17 09:54 Dose: 5 mg - Objective Vital Signs: Vital Signs Temperature 98 F 08/27/17 10:01 Pulse Rate 92 H 08/27/17 10:01 Respiratory Rate 18 08/27/17 10:01 Blood Pressure 147/78 08/27/17 10:01 O2 Sat by Pulse Oximetry (%) 96 08/27/17 07:47 Constitutional: Yes: Cachectic Eyes: Yes: WNL, Conjunctiva Clear, EOM Intact HENT: Yes: WNL, Atraumatic, Normocephalic Neck: Yes: WNL, Supple, Trachea Midline Cardiovascular: Yes: WNL, Regular Rate and Rhythm, Murmur, S2 Respiratory: Yes: WNL, Regular, CTA Bilaterally Gastrointestinal: Yes: WNL, Normal Bowel Sounds Genitourinary: Yes: WNL Musculoskeletal: Yes: WNL Extremities: Yes: WNL Edema: No Integumentary: Yes: WNL Neurological: Yes: WNL, Alert, Oriented ...Motor Strength: WNL Psychiatric: Yes: WNL Labs: CBC, BMP 08/27/17 06:00 08/27/17 06:00 Problem List - Problems (1) COPD (chronic obstructive pulmonary disease) Code(s): J44.9 - CHRONIC OBSTRUCTIVE PULMONARY DISEASE, UNSPECIFIED Qualifiers: COPD type: COPD with acute exacerbation Qualified Code(s): J44.1 - Chronic obstructive pulmonary disease with (acute) exacerbation (2) COPD exacerbation Code(s): J44.1 - CHRONIC OBSTRUCTIVE PULMONARY DISEASE W (ACUTE) EXACERBATION (3) Chronic respiratory failure with hypoxia Code(s): J96.11 - CHRONIC RESPIRATORY FAILURE WITH HYPOXIA (4) Dehydration Code(s): E86.0 - DEHYDRATION (5) Diabetes mellitus Code(s): E11.9 - TYPE 2 DIABETES MELLITUS WITHOUT COMPLICATIONS Qualifiers: Diabetes mellitus type: type 2 Diabetes mellitus user interface artist insulin use: without halfway use (6) Hypernatremia Code(s): E87.0 - HYPEROSMOLALITY AND HYPERNATREMIA (7) Hypertension Code(s): I10 - ESSENTIAL (PRIMARY) HYPERTENSION Qualifiers: Hypertension type: essential hypertension Qualified Code(s): I10 - Essential (primary) hypertension (8) SOB (shortness of breath) Code(s): R06.02 - SHORTNESS OF BREATH (9) Breast cancer, right Code(s): C50.911 - MALIGNANT NEOPLASM OF UNSP SITE OF RIGHT FEMALE BREAST Qualifiers: Breast location: central portion of breast Assessment/Plan COPD exacorbation no signs of decompensated CHF - bnp wnl valvular hertt ds moderate MS moderate moderate AR DM HTN prerenal azotemia breast CA borderline elevation of TNI's Plan d/c digoxin pulmonary rx watch for chf decompensation f/u ekg and CE
[2017-08-27] MEDS: predniSONE 20 MG TABLET (UD) PO SCH (16:54)
[2017-08-27] MEDS: ATORVASTATIN CA 10 MG TABLET (FP) PO SCH (22:07)
[2017-08-27] MEDS: BUDESONIDE/FORMETEROL FUMARATE 80/4.5 mcg INHALER IH SCH (23:23)
[2017-08-28] MEDS ORDERED: PT OWN MED DRAWER 7, Y5N ONE (09:31)
[2017-08-28] MEDS: LOSARTAN POTASSIUM 25 MG TABLET PO SCH (09:51)
[2017-08-28] MEDS: RANITIDINE HCL 150 MG TABLET (FP) PO SCH (09:51)
[2017-08-28] MEDS: POTASSIUM CHLORIDE ORAL LIQUID 20 MEQ/15 ML PO SCH (09:51)
[2017-08-28] MEDS: GABAPENTIN 100 MG CAPSULE (FP) PO SCH (09:51)
[2017-08-28] MEDS: predniSONE 20 MG TABLET (UD) PO SCH (09:51)
[2017-08-28] MEDS: SOLIFENACIN SUCCINATE 5 MG TAB (FP) PO SCH (09:51)
[2017-08-28] MEDS: FOLIC ACID 1 MG TABLET (FP) PO SCH (09:51)
[2017-08-28] MEDS: LORATADINE 10 MG TABLET PO SCH (09:51)
[2017-08-28] MEDS: BUDESONIDE/FORMETEROL FUMARATE 80/4.5 mcg INHALER IH SCH ×2 (09:55→22:28)
[2017-08-28] MEDS: OLANZapine 5 MG TABLET PO SCH (09:55)
--- NOTE | 2017-08-28 11:32 | EKG ---
Test Reason : Blood Pressure : / mmHG Vent. Rate : 089 BPM Atrial Rate : 089 BPM P-R Int : 166 ms QRS Dur : 080 ms QT Int : 284 ms P-R-T Axes : 078 015 -64 degrees QTc Int : 345 ms SINUS RHYTHM WITH PREMATURE SUPRAVENTRICULAR COMPLEXES NONSPECIFIC T WAVE ABNORMALITY ABNORMAL ECG WHEN COMPARED WITH ECG OF 26-AUG-2017 07:23, NONSPECIFIC T WAVE ABNORMALITY, WORSE IN INFERIOR LEADS QT HAS SHORTENED Confirmed by KEVIN STEVE, YG ([id number]) on 08/28/2017 11:32:17 AM Referred By: Confirmed By:YG BROWN MD
--- NOTE | 2017-08-28 12:41 | PN ---
Progress Note (short form) - Note Progress Note: PULMONARY Breathing better but not at baseline. No cough but some wheezing. Last Vital Signs Temp Pulse Resp BP Pulse Ox 98.1 F 88 16 144/70 94 L 08/28/17 10:00 08/28/17 10:00 08/28/17 10:00 08/28/17 10:00 08/28/17 10:00 Gen: NAD at rest Heart: RRR Lung: distant breath sounds Abd: soft, nontender Ext: no edema CBC, BMP 08/27/17 06:00 08/27/17 06:00 Active Medications Acetaminophen (Tylenol -) 325 mg PO Q6H PRN PRN Reason: PAIN Albuterol Sulfate (Ventolin 0.083% Nebulizer Soln -) 1 amp NEB QID PRN PRN Reason: SHORTNESS OF BREATH Last Admin: 08/27/17 20:44 Dose: 1 amp Atorvastatin Calcium (Lipitor -) 10 mg PO HS [facility] Last Admin: 08/27/17 22:07 Dose: 10 mg Budesonide/Formoterol Fumarate (Symbicort 80/4.5mcg -) 2 puff IH BID [facility] Last Admin: 08/28/17 09:55 Dose: 2 puff Folic Acid (Folic Acid -) 1 mg PO DAILY [facility] Last Admin: 08/28/17 09:51 Dose: 1 mg Gabapentin (Neurontin -) 100 mg PO DAILY [facility] Last Admin: 08/28/17 09:51 Dose: 100 mg Loratadine (Claritin -) 10 mg PO DAILY [facility] Last Admin: 08/28/17 09:51 Dose: 10 mg Losartan Potassium (Cozaar -) 25 mg PO DAILY [facility] Last Admin: 08/28/17 09:51 Dose: 25 mg Olanzapine (Zyprexa -) 5 mg PO DAILY [facility] Last Admin: 08/28/17 09:55 Dose: 5 mg Potassium Chloride (Potassium Chloride Oral Liquid) 10 meq PO DAILY [facility] Last Admin: 08/28/17 09:51 Dose: 10 meq Prednisone (Deltasone -) 40 mg PO DAILY [facility] Last Admin: 08/28/17 09:51 Dose: 40 mg Ranitidine HCl (Zantac -) 150 mg PO DAILY [facility] Last Admin: 08/28/17 09:51 Dose: 150 mg Solifenacin (Vesicare -) 5 mg PO DAILY [facility] Last Admin: 08/28/17 09:51 Dose: 5 mg A/P Acute COPD Exacerbation Chronic Hypoxic Respiratory Failure CHF HTN DM Hypercholesterolemia h/o Breast Ca - prednisone taper - inhaled bronchodilators standing and PRN - O2 to keep SpO2 >90% - glucose control while on systemic steroids - DVT prophylaxis Problem List - Problems (1) COPD exacerbation Code(s): J44.1 - CHRONIC OBSTRUCTIVE PULMONARY DISEASE W (ACUTE) EXACERBATION (2) Chronic respiratory failure with hypoxia Code(s): J96.11 - CHRONIC RESPIRATORY FAILURE WITH HYPOXIA (3) Diabetes mellitus Code(s): E11.9 - TYPE 2 DIABETES MELLITUS WITHOUT COMPLICATIONS Qualifiers: Diabetes mellitus type: type 2 Diabetes mellitus intermodal customer service insulin use: without intermodal customer service use (4) Hypertension Code(s): I10 - ESSENTIAL (PRIMARY) HYPERTENSION Qualifiers: Hypertension type: essential hypertension Qualified Code(s): I10 - Essential (primary) hypertension
--- NOTE | 2017-08-28 17:13 | PN ---
Progress Note, Physician Chief Complaint: Feels better - Current Medication List Current Medications: Active Medications Acetaminophen (Tylenol -) 325 mg PO Q6H PRN PRN Reason: PAIN Albuterol Sulfate (Ventolin 0.083% Nebulizer Soln -) 1 amp NEB QID PRN PRN Reason: SHORTNESS OF BREATH Last Admin: 08/27/17 20:44 Dose: 1 amp Atorvastatin Calcium (Lipitor -) 10 mg PO HS [facility] Last Admin: 08/27/17 22:07 Dose: 10 mg Budesonide/Formoterol Fumarate (Symbicort 80/4.5mcg -) 2 puff IH BID [facility] Last Admin: 08/28/17 09:55 Dose: 2 puff Folic Acid (Folic Acid -) 1 mg PO DAILY [facility] Last Admin: 08/28/17 09:51 Dose: 1 mg Gabapentin (Neurontin -) 100 mg PO DAILY [facility] Last Admin: 08/28/17 09:51 Dose: 100 mg Loratadine (Claritin -) 10 mg PO DAILY [facility] Last Admin: 08/28/17 09:51 Dose: 10 mg Losartan Potassium (Cozaar -) 25 mg PO DAILY [facility] Last Admin: 08/28/17 09:51 Dose: 25 mg Olanzapine (Zyprexa -) 5 mg PO DAILY [facility] Last Admin: 08/28/17 09:55 Dose: 5 mg Potassium Chloride (Potassium Chloride Oral Liquid) 10 meq PO DAILY [facility] Last Admin: 08/28/17 09:51 Dose: 10 meq Prednisone (Deltasone -) 40 mg PO DAILY [facility] Last Admin: 08/28/17 09:51 Dose: 40 mg Ranitidine HCl (Zantac -) 150 mg PO DAILY [facility] Last Admin: 08/28/17 09:51 Dose: 150 mg Solifenacin (Vesicare -) 5 mg PO DAILY [facility] Last Admin: 08/28/17 09:51 Dose: 5 mg - Objective Vital Signs: Vital Signs Temperature 97.9 F 08/28/17 14:35 Pulse Rate 91 H 08/28/17 14:35 Respiratory Rate 18 08/28/17 14:35 Blood Pressure 143/72 08/28/17 14:35 O2 Sat by Pulse Oximetry (%) 94 L 08/28/17 10:00 Constitutional: Yes: No Distress Neck: Yes: Supple Cardiovascular: Yes: Regular Rate and Rhythm, S1, S2 Respiratory: Yes: Regular, CTA Bilaterally Gastrointestinal: Yes: Normal Bowel Sounds, Soft Neurological: Yes: Alert, Unsteady Gait. No: Loss of Sensation Labs: CBC, BMP 08/27/17 06:00 08/27/17 06:00 Problem List - Problems (1) COPD (chronic obstructive pulmonary disease) Assessment/Plan: Improving, cont. steroids and nebs. Code(s): J44.9 - CHRONIC OBSTRUCTIVE PULMONARY DISEASE, UNSPECIFIED Qualifiers: COPD type: COPD with acute exacerbation Qualified Code(s): J44.1 - Chronic obstructive pulmonary disease with (acute) exacerbation (2) Unsteady gait Assessment/Plan: Will get PT eval, pt may need rehab. Code(s): R26.81 - UNSTEADINESS ON FEET
--- NOTE | 2017-08-28 17:32 | PN ---
Progress Note, Physician History of Present Illness: Cardiology coverage for Dr. Whitlock: Dyspnea improving, denies cough or wheeze. - Current Medication List Current Medications: Active Medications Acetaminophen (Tylenol -) 325 mg PO Q6H PRN PRN Reason: PAIN Albuterol Sulfate (Ventolin 0.083% Nebulizer Soln -) 1 amp NEB QID PRN PRN Reason: SHORTNESS OF BREATH Last Admin: 08/27/17 20:44 Dose: 1 amp Atorvastatin Calcium (Lipitor -) 10 mg PO HS [facility] Last Admin: 08/27/17 22:07 Dose: 10 mg Budesonide/Formoterol Fumarate (Symbicort 80/4.5mcg -) 2 puff IH BID [facility] Last Admin: 08/28/17 09:55 Dose: 2 puff Folic Acid (Folic Acid -) 1 mg PO DAILY [facility] Last Admin: 08/28/17 09:51 Dose: 1 mg Gabapentin (Neurontin -) 100 mg PO DAILY [facility] Last Admin: 08/28/17 09:51 Dose: 100 mg Loratadine (Claritin -) 10 mg PO DAILY [facility] Last Admin: 08/28/17 09:51 Dose: 10 mg Losartan Potassium (Cozaar -) 25 mg PO DAILY [facility] Last Admin: 08/28/17 09:51 Dose: 25 mg Olanzapine (Zyprexa -) 5 mg PO DAILY [facility] Last Admin: 08/28/17 09:55 Dose: 5 mg Potassium Chloride (Potassium Chloride Oral Liquid) 10 meq PO DAILY [facility] Last Admin: 08/28/17 09:51 Dose: 10 meq Prednisone (Deltasone -) 40 mg PO DAILY [facility] Last Admin: 08/28/17 09:51 Dose: 40 mg Ranitidine HCl (Zantac -) 150 mg PO DAILY [facility] Last Admin: 08/28/17 09:51 Dose: 150 mg Solifenacin (Vesicare -) 5 mg PO DAILY [facility] Last Admin: 08/28/17 09:51 Dose: 5 mg - Objective Vital Signs: Vital Signs Temperature 97.9 F 08/28/17 14:35 Pulse Rate 91 H 08/28/17 14:35 Respiratory Rate 18 08/28/17 14:35 Blood Pressure 143/72 08/28/17 14:35 O2 Sat by Pulse Oximetry (%) 94 L 08/28/17 10:00 Constitutional: Yes: No Distress, Calm, Thin Neck: Yes: Supple Cardiovascular: Yes: Regular Rate and Rhythm, Murmur Respiratory: Yes: Regular, Diminished, On Nasal O2 Gastrointestinal: Yes: Normal Bowel Sounds, Soft Edema: No Labs: CBC, BMP 08/27/17 06:00 08/27/17 06:00 - ....Imaging EKG: Report Reviewed (SR @ 89 PAC nonspec T w changes) Problem List - Problems (1) COPD exacerbation Code(s): J44.1 - CHRONIC OBSTRUCTIVE PULMONARY DISEASE W (ACUTE) EXACERBATION (2) Diabetes mellitus Code(s): E11.9 - TYPE 2 DIABETES MELLITUS WITHOUT COMPLICATIONS Qualifiers: Diabetes mellitus type: type 2 Diabetes mellitus senior living insulin use: without senior living use (3) Hypertension Code(s): I10 - ESSENTIAL (PRIMARY) HYPERTENSION Qualifiers: Hypertension type: essential hypertension Qualified Code(s): I10 - Essential (primary) hypertension (4) SOB (shortness of breath) Code(s): R06.02 - SHORTNESS OF BREATH (5) Hyperlipidemia Code(s): E78.5 - HYPERLIPIDEMIA, UNSPECIFIED Qualifiers: Hyperlipidemia type: pure hypercholesterolemia Qualified Code(s): E78.00 - Pure hypercholesterolemia, unspecified; E78.0 - Pure hypercholesterolemia Assessment/Plan 08/27/2017 Echo: Mild cLVH with low normal LV fxn, mild LAE, mod-severe MS, mod- severe AR, mild-mod 1. COPD exacerbation resolving 2. Valvular heart disease (moderate MS, moderate , moderate AR), euvolemic, bnp wnl 3. DM 4. HTN 5. Hyperlipidemia 6. h/o breast CA P:1. Oral steroid taper with GI protection, BD, O2 to keep SpO2 >90%, DVT prophylaxis 2. Continue Lipitor 10 qhs, losartan 25 qd
[2017-08-28] MEDS: ALBUTEROL SO4 0.083% IH SOL 2.5 MG/3 ML VIAL.NEB. NEB PRN (19:29)
--- NOTE | 2017-08-28 20:25 | PN ---
Progress Note (short form) - Note Progress Note: Renal Follow up. Elderly female with history of hypertension, diet controlled diabetes mellitus, stage 3 chronic kidney disease and COPD admitted with exacerbation of asthma/ COPD. She also has a history of bilateral breast cancer, s/p radical left mastectomy and right lumpectomy, heart failure and major depressive illness. Patient is feeling better today especially after the nebulizer treatment. Vitals; Vital Signs (72 hours) 08/26/17 08/26/17 08/26/17 07:01 07:45 10:39 Temperature 97.6 F 97.8 F Pulse Rate 90 80 Pulse Rate [ Apical] Respiratory 16 18 Rate Blood Pressure 116/68 132/69 Blood Pressure [Left Arm] O2 Sat by Pulse 98 99 100 Oximetry (%) 08/26/17 08/26/17 08/26/17 11:33 14:24 18:00 Temperature 98.5 F 97.8 F 97.7 F Pulse Rate 80 75 Pulse Rate [ 73 Apical] Respiratory 18 18 18 Rate Blood Pressure 132/69 131/71 Blood Pressure 124/74 [Left Arm] O2 Sat by Pulse 100 100 Oximetry (%) 08/26/17 08/26/17 08/27/17 21:17 23:47 07:47 Temperature 97.8 F Pulse Rate 81 Pulse Rate [ Apical] Respiratory 18 18 18 Rate Blood Pressure 143/69 Blood Pressure [Left Arm] O2 Sat by Pulse 96 96 Oximetry (%) 08/27/17 08/27/17 08/27/17 09:49 10:01 14:27 Temperature 98 F 97.9 F Pulse Rate 83 92 H 88 Pulse Rate [ Apical] Respiratory 18 20 Rate Blood Pressure 147/78 130/69 Blood Pressure [Left Arm] O2 Sat by Pulse Oximetry (%) 08/27/17 08/27/17 08/27/17 18:14 22:10 22:42 Temperature 98.4 F 97.9 F Pulse Rate 92 H 87 Pulse Rate [ Apical] Respiratory 24 20 20 Rate Blood Pressure 141/64 133/68 Blood Pressure [Left Arm] O2 Sat by Pulse 96 Oximetry (%) 08/28/17 08/28/17 08/28/17 05:01 10:00 14:35 Temperature 98.1 F 97.9 F Pulse Rate 88 91 H Pulse Rate [ Apical] Respiratory 20 16 18 Rate Blood Pressure 144/70 143/72 Blood Pressure [Left Arm] O2 Sat by Pulse 96 94 L Oximetry (%) 08/28/17 18:00 Temperature 98.3 F Pulse Rate 87 Pulse Rate [ Apical] Respiratory 20 Rate Blood Pressure 128/72 Blood Pressure [Left Arm] O2 Sat by Pulse Oximetry (%) Lungs; reduced air entry globally Heart: S1 S2 Regular, no gallop Abd: Full, soft, non-tender, BS normal. Ext: NO edema Labs; Laboratory Results - last 24 hr 08/28/17 16:47 POC Glucometer 107 CBC,CMP WBC 6.3 K/mm3 (4.0-10.0) D 08/27/17 06:00 RBC 4.01 M/mm3 (3.60-5.2) 08/27/17 06:00 Hgb 11.6 GM/dL (10.7-15.3) 08/27/17 06:00 Hct 34.2 % (32.4-45.2) 08/27/17 06:00 MCV 85.3 fl (80-96) 08/27/17 06:00 MCH 29.0 pg (25.7-33.7) 08/27/17 06:00 MCHC 34.0 g/dl (32.0-36.0) 08/27/17 06:00 RDW 15.3 % (11.6-15.6) 08/27/17 06:00 Plt Count 135 K/MM3 (134-434) D 08/27/17 06:00 MPV 9.5 fl (7.5-11.1) 08/27/17 06:00 Total Counted 100 08/26/17 08:00 Neutrophils % 92.1 % (42.8-82.8) H 08/27/17 06:00 Neutrophils % (Manual) 69.0 % (42.8-82.8) 08/26/17 08:00 Band Neutrophils % 2.0 % (0-10) 08/26/17 08:00 Lymphocytes % 7.1 % (8-40) L 08/27/17 06:00 Lymphocytes % (Manual) 19.0 % (8-40) 08/26/17 08:00 Monocytes % 0.7 % (3.8-10.2) L 08/27/17 06:00 Monocytes % (Manual) 9 % (3.8-10.2) 08/26/17 08:00 Eosinophils % 0.0 % (0-4.5) 08/27/17 06:00 Basophils % 0.1 % (0-2.0) 08/27/17 06:00 Basophils % (Manual) 1.0 % (0-2.0) 08/26/17 08:00 Differential Comment Man diff performed 08/26/17 08:00 Platelet Estimate Adequate 08/26/17 08:00 Platelet Comment Slt plt clumping 08/26/17 08:00 Sodium 143 mmol/L (136-145) 08/27/17 06:00 Potassium 3.9 mmol/L (3.5-5.1) 08/27/17 06:00 Chloride 109 mmol/L (98-107) H 08/27/17 06:00 Carbon Dioxide 29 mmol/L (21-32) 08/27/17 06:00 Anion Gap 5 (8-16) L 08/27/17 06:00 BUN 24 mg/dL (7-18) H 08/27/17 06:00 Creatinine 1.1 mg/dL (0.55-1.02) H 08/27/17 06:00 Creat Clearance w eGFR 47.32 (>60) 08/27/17 06:00 POC Glucometer 107 UNITS (80-120) 08/28/17 16:47 Random Glucose 141 mg/dL (74-106) H 08/27/17 06:00 Calcium 8.5 mg/dL (8.5-10.1) 08/27/17 06:00 Total Bilirubin 0.6 mg/dL (0.2-1.0) D 08/27/17 06:00 AST 24 U/L (15-37) 08/27/17 06:00 ALT 32 U/L (12-78) 08/27/17 06:00 Alkaline Phosphatase 50 U/L (45-117) 08/27/17 06:00 Creatine Kinase 570 IU/L (26-192) H 08/27/17 15:10 Creatine Kinase Index 1.1 % (0.0-5.0) 08/27/17 15:10 CK-MB (CK-2) 6.298 ng/mL (0.5-3.6) H 08/27/17 15:10 Troponin I 0.07 ng/ml (0.00-0.05) H 08/27/17 15:10 B-Natriuretic Peptide 372.25 pg/ml (5-450) 08/26/17 08:00 Total Protein 6.5 g/dl (6.4-8.2) 08/27/17 06:00 Albumin 3.4 g/dl (3.4-5.0) 08/27/17 06:00 A/P: Elderly female with hypertension, type 2 diabetes mellitus and asthma/copd admitted with decompensated chronic obstructive airway disease and rhabdomyolysis. Continue with gentle iv fluid as tolerated. Will follow
[2017-08-28] MEDS: ATORVASTATIN CA 10 MG TABLET (FP) PO SCH (22:28)
[2017-08-29] MEDS ORDERED: PT OWN MED DRAWER 7, Y5N ONE ×2 (10:07→10:18)
[2017-08-29] MEDS: FOLIC ACID 1 MG TABLET (FP) PO SCH (10:09)
[2017-08-29] MEDS: RANITIDINE HCL 150 MG TABLET (FP) PO SCH (10:10)
[2017-08-29] MEDS: LORATADINE 10 MG TABLET PO SCH (10:10)
[2017-08-29] MEDS: LOSARTAN POTASSIUM 25 MG TABLET PO SCH (10:10)
[2017-08-29] MEDS: predniSONE 20 MG TABLET (UD) PO SCH (10:10)
[2017-08-29] MEDS: SOLIFENACIN SUCCINATE 5 MG TAB (FP) PO SCH (10:10)
[2017-08-29] MEDS: POTASSIUM CHLORIDE ORAL LIQUID 20 MEQ/15 ML PO SCH (10:10)
[2017-08-29] MEDS: GABAPENTIN 100 MG CAPSULE (FP) PO SCH (10:10)
[2017-08-29] MEDS: BUDESONIDE/FORMETEROL FUMARATE 80/4.5 mcg INHALER IH SCH ×2 (11:09→21:22)
[2017-08-29] MEDS: OLANZapine 5 MG TABLET PO SCH (11:09)
--- NOTE | 2017-08-29 12:52 | PN ---
Progress Note (short form) - Note Progress Note: PULMONARY Breathing better but not at baseline. c/o diarrhea. No cough but some wheezing. Last Vital Signs Temp Pulse Resp BP Pulse Ox 98.1 F 84 20 145/88 94 L 08/29/17 10:00 08/29/17 10:00 08/29/17 10:00 08/29/17 10:00 08/29/17 09:00 Gen: NAD at rest Heart: RRR Lung: distant breath sounds Abd: soft, nontender Ext: no edema CBC, BMP 08/27/17 06:00 08/27/17 06:00 Active Medications Acetaminophen (Tylenol -) 325 mg PO Q6H PRN PRN Reason: PAIN Albuterol Sulfate (Ventolin 0.083% Nebulizer Soln -) 1 amp NEB QID PRN PRN Reason: SHORTNESS OF BREATH Last Admin: 08/28/17 19:29 Dose: 1 amp Atorvastatin Calcium (Lipitor -) 10 mg PO HS [facility] Last Admin: 08/28/17 22:28 Dose: 10 mg Budesonide/Formoterol Fumarate (Symbicort 80/4.5mcg -) 2 puff IH BID [facility] Last Admin: 08/29/17 11:09 Dose: 2 puff Folic Acid (Folic Acid -) 1 mg PO DAILY [facility] Last Admin: 08/29/17 10:09 Dose: 1 mg Gabapentin (Neurontin -) 100 mg PO DAILY [facility] Last Admin: 08/29/17 10:10 Dose: 100 mg Loratadine (Claritin -) 10 mg PO DAILY [facility] Last Admin: 08/29/17 10:10 Dose: 10 mg Losartan Potassium (Cozaar -) 25 mg PO DAILY [facility] Last Admin: 08/29/17 10:10 Dose: 25 mg Olanzapine (Zyprexa -) 5 mg PO DAILY [facility] Last Admin: 08/29/17 11:09 Dose: 5 mg Potassium Chloride (Potassium Chloride Oral Liquid) 10 meq PO DAILY [facility] Last Admin: 08/29/17 10:10 Dose: 10 meq Prednisone (Deltasone -) 40 mg PO DAILY [facility] Last Admin: 08/29/17 10:10 Dose: 40 mg Ranitidine HCl (Zantac -) 150 mg PO DAILY [facility] Last Admin: 08/29/17 10:10 Dose: 150 mg Solifenacin (Vesicare -) 5 mg PO DAILY [facility] Last Admin: 08/29/17 10:10 Dose: 5 mg A/P Acute COPD Exacerbation Chronic Hypoxic Respiratory Failure CHF HTN DM Hypercholesterolemia h/o Breast Ca - prednisone taper - inhaled bronchodilators standing and PRN - O2 to keep SpO2 >90% - glucose control while on systemic steroids - DVT prophylaxis Problem List - Problems (1) COPD exacerbation Code(s): J44.1 - CHRONIC OBSTRUCTIVE PULMONARY DISEASE W (ACUTE) EXACERBATION (2) Chronic respiratory failure with hypoxia Code(s): J96.11 - CHRONIC RESPIRATORY FAILURE WITH HYPOXIA (3) Diabetes mellitus Code(s): E11.9 - TYPE 2 DIABETES MELLITUS WITHOUT COMPLICATIONS Qualifiers: Diabetes mellitus type: type 2 Diabetes mellitus longterm insulin use: without longterm use (4) Hypertension Code(s): I10 - ESSENTIAL (PRIMARY) HYPERTENSION Qualifiers: Hypertension type: essential hypertension Qualified Code(s): I10 - Essential (primary) hypertension
--- NOTE | 2017-08-29 13:55 | PN ---
Progress Note, Physician History of Present Illness: Cardiology coverage for Dr. Whitlock: Dyspnea improving, denies cough or wheeze. - Current Medication List Current Medications: Active Medications Acetaminophen (Tylenol -) 325 mg PO Q6H PRN PRN Reason: PAIN Albuterol Sulfate (Ventolin 0.083% Nebulizer Soln -) 1 amp NEB QID PRN PRN Reason: SHORTNESS OF BREATH Last Admin: 08/28/17 19:29 Dose: 1 amp Atorvastatin Calcium (Lipitor -) 10 mg PO HS [facility] Last Admin: 08/28/17 22:28 Dose: 10 mg Budesonide/Formoterol Fumarate (Symbicort 80/4.5mcg -) 2 puff IH BID [facility] Last Admin: 08/29/17 11:09 Dose: 2 puff Folic Acid (Folic Acid -) 1 mg PO DAILY [facility] Last Admin: 08/29/17 10:09 Dose: 1 mg Gabapentin (Neurontin -) 100 mg PO DAILY [facility] Last Admin: 08/29/17 10:10 Dose: 100 mg Loratadine (Claritin -) 10 mg PO DAILY [facility] Last Admin: 08/29/17 10:10 Dose: 10 mg Losartan Potassium (Cozaar -) 25 mg PO DAILY [facility] Last Admin: 08/29/17 10:10 Dose: 25 mg Olanzapine (Zyprexa -) 5 mg PO DAILY [facility] Last Admin: 08/29/17 11:09 Dose: 5 mg Potassium Chloride (Potassium Chloride Oral Liquid) 10 meq PO DAILY [facility] Last Admin: 08/29/17 10:10 Dose: 10 meq Prednisone (Deltasone -) 40 mg PO DAILY [facility] Last Admin: 08/29/17 10:10 Dose: 40 mg Ranitidine HCl (Zantac -) 150 mg PO DAILY [facility] Last Admin: 08/29/17 10:10 Dose: 150 mg Solifenacin (Vesicare -) 5 mg PO DAILY [facility] Last Admin: 08/29/17 10:10 Dose: 5 mg - Objective Vital Signs: Vital Signs Temperature 98.1 F 08/29/17 10:00 Pulse Rate 84 08/29/17 10:00 Respiratory Rate 20 08/29/17 10:00 Blood Pressure 145/88 08/29/17 10:00 O2 Sat by Pulse Oximetry (%) 94 L 08/29/17 09:00 Constitutional: Yes: No Distress, Calm Neck: Yes: Supple Cardiovascular: Yes: Regular Rate and Rhythm Respiratory: Yes: Regular, Diminished Gastrointestinal: Yes: Normal Bowel Sounds, Soft Edema: No Labs: CBC, BMP 08/27/17 06:00 08/27/17 06:00 Problem List - Problems (1) COPD exacerbation Code(s): J44.1 - CHRONIC OBSTRUCTIVE PULMONARY DISEASE W (ACUTE) EXACERBATION (2) Diabetes mellitus Code(s): E11.9 - TYPE 2 DIABETES MELLITUS WITHOUT COMPLICATIONS Qualifiers: Diabetes mellitus type: type 2 Diabetes mellitus 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 insulin use: without 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 use (3) Hypertension Code(s): I10 - ESSENTIAL (PRIMARY) HYPERTENSION Qualifiers: Hypertension type: essential hypertension Qualified Code(s): I10 - Essential (primary) hypertension (4) SOB (shortness of breath) Code(s): R06.02 - SHORTNESS OF BREATH (5) Hyperlipidemia Code(s): E78.5 - HYPERLIPIDEMIA, UNSPECIFIED Qualifiers: Hyperlipidemia type: pure hypercholesterolemia Qualified Code(s): E78.00 - Pure hypercholesterolemia, unspecified; E78.0 - Pure hypercholesterolemia Assessment/Plan 08/27/2017 Echo: Mild cLVH with low normal LV fxn, mild LAE, mod-severe MS, mod- severe AR, mild-mod 1. COPD exacerbation resolving 2. Valvular heart disease (moderate MS, moderate , moderate AR), euvolemic, bnp wnl 3. DM 4. HTN 5. Hyperlipidemia 6. h/o breast CA P:1. Oral steroid taper with GI protection, BD, O2 to keep SpO2 >90%, DVT prophylaxis 2. Continue Lipitor 10 qhs, losartan 25 qd
--- NOTE | 2017-08-29 14:15 | PN ---
Progress Note, Physician Chief Complaint: c/o diarrhea - Current Medication List Current Medications: Active Medications Acetaminophen (Tylenol -) 325 mg PO Q6H PRN PRN Reason: PAIN Albuterol Sulfate (Ventolin 0.083% Nebulizer Soln -) 1 amp NEB QID PRN PRN Reason: SHORTNESS OF BREATH Last Admin: 08/28/17 19:29 Dose: 1 amp Atorvastatin Calcium (Lipitor -) 10 mg PO HS [facility] Last Admin: 08/28/17 22:28 Dose: 10 mg Budesonide/Formoterol Fumarate (Symbicort 80/4.5mcg -) 2 puff IH BID [facility] Last Admin: 08/29/17 11:09 Dose: 2 puff Folic Acid (Folic Acid -) 1 mg PO DAILY [facility] Last Admin: 08/29/17 10:09 Dose: 1 mg Gabapentin (Neurontin -) 100 mg PO DAILY [facility] Last Admin: 08/29/17 10:10 Dose: 100 mg Loratadine (Claritin -) 10 mg PO DAILY [facility] Last Admin: 08/29/17 10:10 Dose: 10 mg Losartan Potassium (Cozaar -) 25 mg PO DAILY [facility] Last Admin: 08/29/17 10:10 Dose: 25 mg Olanzapine (Zyprexa -) 5 mg PO DAILY [facility] Last Admin: 08/29/17 11:09 Dose: 5 mg Potassium Chloride (Potassium Chloride Oral Liquid) 10 meq PO DAILY [facility] Last Admin: 08/29/17 10:10 Dose: 10 meq Prednisone (Deltasone -) 40 mg PO DAILY [facility] Last Admin: 08/29/17 10:10 Dose: 40 mg Ranitidine HCl (Zantac -) 150 mg PO DAILY [facility] Last Admin: 08/29/17 10:10 Dose: 150 mg Solifenacin (Vesicare -) 5 mg PO DAILY [facility] Last Admin: 08/29/17 10:10 Dose: 5 mg - Objective Vital Signs: Vital Signs Temperature 98.1 F 08/29/17 10:00 Pulse Rate 84 08/29/17 10:00 Respiratory Rate 20 08/29/17 10:00 Blood Pressure 145/88 08/29/17 10:00 O2 Sat by Pulse Oximetry (%) 94 L 08/29/17 09:00 Constitutional: Yes: No Distress Neck: Yes: Supple Cardiovascular: Yes: Regular Rate and Rhythm, S1, S2 Respiratory: Yes: CTA Bilaterally Gastrointestinal: Yes: Normal Bowel Sounds Neurological: Yes: Alert. No: Loss of Sensation Labs: CBC, BMP 08/27/17 06:00 08/27/17 06:00 Problem List - Problems (1) COPD (chronic obstructive pulmonary disease) Assessment/Plan: Improving, cont. steroids and nebs. Code(s): J44.9 - CHRONIC OBSTRUCTIVE PULMONARY DISEASE, UNSPECIFIED Qualifiers: COPD type: COPD with acute exacerbation Qualified Code(s): J44.1 - Chronic obstructive pulmonary disease with (acute) exacerbation (2) Unsteady gait Assessment/Plan: Will get PT eval, pt may need rehab. Code(s): R26.81 - UNSTEADINESS ON FEET (3) Diarrhea Assessment/Plan: Will get stool for C. diff. Code(s): R19.7 - DIARRHEA, UNSPECIFIED Qualifiers: Diarrhea type: unspecified type Qualified Code(s): R19.7 - Diarrhea, unspecified
--- NOTE | 2017-08-29 20:45 | PN ---
Progress Note (short form) - Note Progress Note: Elderly female with type 2 diabetes mellitus, hypertension and stage 3 chronic kidney disease admitted with exacerbation copd. Patient is feeling better today. Appears more comfortable today. Vitals: Vital Signs (72 hours) 08/26/17 08/26/17 08/27/17 21:17 23:47 07:47 Temperature 97.8 F Pulse Rate 81 Respiratory 18 18 18 Rate Blood Pressure 143/69 O2 Sat by Pulse 96 96 Oximetry (%) 08/27/17 08/27/17 08/27/17 09:49 10:01 14:27 Temperature 98 F 97.9 F Pulse Rate 83 92 H 88 Respiratory 18 20 Rate Blood Pressure 147/78 130/69 O2 Sat by Pulse Oximetry (%) 08/27/17 08/27/17 08/27/17 18:14 22:10 22:42 Temperature 98.4 F 97.9 F Pulse Rate 92 H 87 Respiratory 24 20 20 Rate Blood Pressure 141/64 133/68 O2 Sat by Pulse 96 Oximetry (%) 08/28/17 08/28/17 08/28/17 05:01 10:00 14:35 Temperature 98.1 F 97.9 F Pulse Rate 88 91 H Respiratory 20 16 18 Rate Blood Pressure 144/70 143/72 O2 Sat by Pulse 96 94 L Oximetry (%) 08/28/17 08/29/17 08/29/17 18:00 04:51 09:00 Temperature 98.3 F 98 F Pulse Rate 87 82 Respiratory 20 20 20 Rate Blood Pressure 128/72 141/71 O2 Sat by Pulse 94 L 94 L Oximetry (%) 08/29/17 08/29/17 08/29/17 10:00 14:47 18:29 Temperature 98.1 F 97.7 F 98.4 F Pulse Rate 84 106 H 88 Respiratory 20 18 18 Rate Blood Pressure 145/88 134/72 119/69 O2 Sat by Pulse Oximetry (%) 08/29/17 20:26 Temperature Pulse Rate Respiratory Rate Blood Pressure O2 Sat by Pulse 94 L Oximetry (%) Lungs: Coarse breath sound in both lung morales Heart: S1 S2 regular, Abd: Full, soft, non-tender, BS normal Ext: No edema Lab: CBCD WBC 6.3 K/mm3 (4.0-10.0) D 08/27/17 06:00 RBC 4.01 M/mm3 (3.60-5.2) 08/27/17 06:00 Hgb 11.6 GM/dL (10.7-15.3) 08/27/17 06:00 Hct 34.2 % (32.4-45.2) 08/27/17 06:00 MCV 85.3 fl (80-96) 08/27/17 06:00 MCHC 34.0 g/dl (32.0-36.0) 08/27/17 06:00 RDW 15.3 % (11.6-15.6) 08/27/17 06:00 Plt Count 135 K/MM3 (134-434) D 08/27/17 06:00 MPV 9.5 fl (7.5-11.1) 08/27/17 06:00 CMP Sodium 143 mmol/L (136-145) 08/27/17 06:00 Potassium 3.9 mmol/L (3.5-5.1) 08/27/17 06:00 Chloride 109 mmol/L (98-107) H 08/27/17 06:00 Carbon Dioxide 29 mmol/L (21-32) 08/27/17 06:00 Anion Gap 5 (8-16) L 08/27/17 06:00 BUN 24 mg/dL (7-18) H 08/27/17 06:00 Creatinine 1.1 mg/dL (0.55-1.02) H 08/27/17 06:00 Creat Clearance w eGFR 47.32 (>60) 08/27/17 06:00 Random Glucose 141 mg/dL (74-106) H 08/27/17 06:00 Calcium 8.5 mg/dL (8.5-10.1) 08/27/17 06:00 Total Bilirubin 0.6 mg/dL (0.2-1.0) D 08/27/17 06:00 AST 24 U/L (15-37) 08/27/17 06:00 ALT 32 U/L (12-78) 08/27/17 06:00 Alkaline Phosphatase 50 U/L (45-117) 08/27/17 06:00 Total Protein 6.5 g/dl (6.4-8.2) 08/27/17 06:00 Albumin 3.4 g/dl (3.4-5.0) 08/27/17 06:00 CARDIAC ENZYMES Creatine Kinase 570 IU/L (26-192) H 08/27/17 15:10 Troponin I 0.07 ng/ml (0.00-0.05) H 08/27/17 15:10 A/P: Elderly female admitted with exacerbation of asthma/COPD. Discharge planning as per PMD. Encouraged to ambulate as tolerated.
[2017-08-29] MEDS: ATORVASTATIN CA 10 MG TABLET (FP) PO SCH (21:21)
[2017-08-30] MEDS: ALBUTEROL SO4 0.083% IH SOL 2.5 MG/3 ML VIAL.NEB. NEB PRN (07:16)
--- NOTE | 2017-08-30 08:54 | PN ---
Progress Note, Physician History of Present Illness: Pt is an 82yo F with PMHx of DM, CHF, asthma/COPD (2L home oxygen) and R breast excision (Apr 2017) presenting with recurrent worsening SOB x 1 week. Pt has noticed episodic SOB at rest usually relieved with albuterol nebulizer, until this morning when she continued to have SOB despite use of the nebulizer. No cough, no fevers, no increase sputum production. No leg swelling or chest pain. Yesterday, she noticed increased urinary frequency with no hematuria. No change in bowel habits. After she called EMS, she had resolution of her symptoms in the ER. Pt has no pets. She however noticed increased SOB following contact with her new aide (who owns a dog) for the past week. - Current Medication List Current Medications: Active Medications Acetaminophen (Tylenol -) 325 mg PO Q6H PRN PRN Reason: PAIN Albuterol Sulfate (Ventolin 0.083% Nebulizer Soln -) 1 amp NEB QID PRN PRN Reason: SHORTNESS OF BREATH Last Admin: 08/30/17 07:16 Dose: 1 amp Atorvastatin Calcium (Lipitor -) 10 mg PO HS [facility] Last Admin: 08/29/17 21:21 Dose: 10 mg Budesonide/Formoterol Fumarate (Symbicort 80/4.5mcg -) 2 puff IH BID [facility] Last Admin: 08/29/17 21:22 Dose: 2 puff Folic Acid (Folic Acid -) 1 mg PO DAILY [facility] Last Admin: 08/29/17 10:09 Dose: 1 mg Gabapentin (Neurontin -) 100 mg PO DAILY [facility] Last Admin: 08/29/17 10:10 Dose: 100 mg Loratadine (Claritin -) 10 mg PO DAILY [facility] Last Admin: 08/29/17 10:10 Dose: 10 mg Losartan Potassium (Cozaar -) 25 mg PO DAILY [facility] Last Admin: 08/29/17 10:10 Dose: 25 mg Olanzapine (Zyprexa -) 5 mg PO DAILY [facility] Last Admin: 08/29/17 11:09 Dose: 5 mg Potassium Chloride (Potassium Chloride Oral Liquid) 10 meq PO DAILY [facility] Last Admin: 08/29/17 10:10 Dose: 10 meq Prednisone (Deltasone -) 40 mg PO DAILY [facility] Last Admin: 08/29/17 10:10 Dose: 40 mg Ranitidine HCl (Zantac -) 150 mg PO DAILY [facility] Last Admin: 08/29/17 10:10 Dose: 150 mg Solifenacin (Vesicare -) 5 mg PO DAILY [facility] Last Admin: 08/29/17 10:10 Dose: 5 mg - Objective Vital Signs: Vital Signs Temperature 98.4 F 08/30/17 06:00 Pulse Rate 93 H 08/30/17 06:00 Respiratory Rate 18 08/30/17 06:00 Blood Pressure 124/75 08/30/17 06:00 O2 Sat by Pulse Oximetry (%) 94 L 08/29/17 20:26 Eyes: Yes: WNL, Conjunctiva Clear, EOM Intact HENT: Yes: WNL, Atraumatic, Normocephalic Neck: Yes: WNL, Supple, Trachea Midline Cardiovascular: Yes: WNL, Regular Rate and Rhythm Respiratory: Yes: WNL, Regular, CTA Bilaterally Gastrointestinal: Yes: WNL, Normal Bowel Sounds Genitourinary: Yes: WNL Musculoskeletal: Yes: WNL Extremities: Yes: WNL Edema: No Integumentary: Yes: WNL Neurological: Yes: WNL, Alert, Oriented ...Motor Strength: WNL Psychiatric: Yes: WNL Labs: CBC, BMP 08/27/17 06:00 08/27/17 06:00 Problem List - Problems (1) COPD (chronic obstructive pulmonary disease) Code(s): J44.9 - CHRONIC OBSTRUCTIVE PULMONARY DISEASE, UNSPECIFIED Qualifiers: COPD type: COPD with acute exacerbation Qualified Code(s): J44.1 - Chronic obstructive pulmonary disease with (acute) exacerbation (2) COPD exacerbation Code(s): J44.1 - CHRONIC OBSTRUCTIVE PULMONARY DISEASE W (ACUTE) EXACERBATION (3) Chronic respiratory failure with hypoxia Code(s): J96.11 - CHRONIC RESPIRATORY FAILURE WITH HYPOXIA (4) Dehydration Code(s): E86.0 - DEHYDRATION (5) Diabetes mellitus Code(s): E11.9 - TYPE 2 DIABETES MELLITUS WITHOUT COMPLICATIONS Qualifiers: Diabetes mellitus type: type 2 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: without residential use (6) Hypernatremia Code(s): E87.0 - HYPEROSMOLALITY AND HYPERNATREMIA (7) Hypertension Code(s): I10 - ESSENTIAL (PRIMARY) HYPERTENSION Qualifiers: Hypertension type: essential hypertension Qualified Code(s): I10 - Essential (primary) hypertension (8) SOB (shortness of breath) Code(s): R06.02 - SHORTNESS OF BREATH (9) Breast cancer, right Code(s): C50.911 - MALIGNANT NEOPLASM OF UNSP SITE OF RIGHT FEMALE BREAST Qualifiers: Breast location: central portion of breast Assessment/Plan COPD exacorbation no signs of decompensated CHF - bnp wnl valvular hertt ds moderate MS moderate moderate AR DM HTN prerenal azotemia breast CA borderline elevation of TNI's Plan d/c digoxin pulmonary rx watch for chf decompensation f/u ekg and CE
--- NOTE | 2017-08-30 09:29 | PN ---
Progress Note (short form) - Note Progress Note: Vital Signs Period Temp Pulse Resp BP Sys/[place] Pulse Ox Last 24 Hr 97.7 F-98.4 F 84-106 18-20 119-145/67-88 94 S1S2 RRR lungs cta, decreased BS at bases abd soft no edema awake alert-has episodes of confusion in evening nonfocal IMp acute COPD exacerbation-resolving HTN NIDDM CHF chronic-not decompensated dehydration-resolved Plan steroid taper resume lasix-monitor lytes physical therapy dc planning to STR likely Problem List - Problems (1) Hypertension Code(s): I10 - ESSENTIAL (PRIMARY) HYPERTENSION Qualifiers: Hypertension type: essential hypertension Qualified Code(s): I10 - Essential (primary) hypertension (2) Diabetes mellitus Code(s): E11.9 - TYPE 2 DIABETES MELLITUS WITHOUT COMPLICATIONS Qualifiers: Diabetes mellitus type: type 2 Diabetes mellitus 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
[2017-08-30] MEDS ORDERED: PT OWN MED DRAWER 7, Y5N ONE ×3 (09:35→20:51)
[2017-08-30] MEDS: predniSONE 20 MG TABLET (UD) PO SCH (09:40)
[2017-08-30] MEDS: RANITIDINE HCL 150 MG TABLET (FP) PO SCH (09:40)
[2017-08-30] MEDS: LORATADINE 10 MG TABLET PO SCH (09:40)
[2017-08-30] MEDS: GABAPENTIN 100 MG CAPSULE (FP) PO SCH (09:40)
[2017-08-30] MEDS: LOSARTAN POTASSIUM 25 MG TABLET PO SCH (09:40)
[2017-08-30] MEDS: SOLIFENACIN SUCCINATE 5 MG TAB (FP) PO SCH (09:41)
[2017-08-30] MEDS: POTASSIUM CHLORIDE ORAL LIQUID 20 MEQ/15 ML PO SCH (09:41)
[2017-08-30] MEDS: OLANZapine 5 MG TABLET PO SCH (09:41)
[2017-08-30] MEDS: BUDESONIDE/FORMETEROL FUMARATE 80/4.5 mcg INHALER IH SCH ×2 (09:41→21:45)
[2017-08-30] MEDS: FUROSEMIDE 40 MG TABLET (FP) PO SCH (09:41)
[2017-08-30] MEDS: FOLIC ACID 1 MG TABLET (FP) PO SCH (09:41)
--- NOTE | 2017-08-30 12:57 | PN ---
Progress Note (short form) - Note Progress Note: PULMONARY Breathing continues to slowly improve. No cough but some wheezing. Last Vital Signs Temp Pulse Resp BP Pulse Ox 98.3 F 88 18 139/71 100 08/30/17 10:00 08/30/17 10:00 08/30/17 10:00 08/30/17 10:00 08/30/17 09:00 Gen: NAD at rest Heart: RRR Lung: distant breath sounds Abd: soft, nontender Ext: no edema CBC, BMP 08/27/17 06:00 08/27/17 06:00 Active Medications Acetaminophen (Tylenol -) 325 mg PO Q6H PRN PRN Reason: PAIN Albuterol Sulfate (Ventolin 0.083% Nebulizer Soln -) 1 amp NEB QID PRN PRN Reason: SHORTNESS OF BREATH Last Admin: 08/30/17 07:16 Dose: 1 amp Atorvastatin Calcium (Lipitor -) 10 mg PO HS [facility] Last Admin: 08/29/17 21:21 Dose: 10 mg Budesonide/Formoterol Fumarate (Symbicort 80/4.5mcg -) 2 puff IH BID [facility] Last Admin: 08/30/17 09:41 Dose: 2 puff Folic Acid (Folic Acid -) 1 mg PO DAILY [facility] Last Admin: 08/30/17 09:41 Dose: 1 mg Furosemide (Lasix -) 40 mg PO DAILY [facility] Last Admin: 08/30/17 09:41 Dose: 40 mg Gabapentin (Neurontin -) 100 mg PO DAILY [facility] Last Admin: 08/30/17 09:40 Dose: 100 mg Loratadine (Claritin -) 10 mg PO DAILY [facility] Last Admin: 08/30/17 09:40 Dose: 10 mg Losartan Potassium (Cozaar -) 25 mg PO DAILY [facility] Last Admin: 08/30/17 09:40 Dose: 25 mg Olanzapine (Zyprexa -) 5 mg PO DAILY [facility] Last Admin: 08/30/17 09:41 Dose: 5 mg Potassium Chloride (Potassium Chloride Oral Liquid) 10 meq PO DAILY [facility] Last Admin: 08/30/17 09:41 Dose: 10 meq Prednisone (Deltasone -) 20 mg PO DAILY [facility] Last Admin: 08/30/17 09:40 Dose: 20 mg Ranitidine HCl (Zantac -) 150 mg PO DAILY [facility] Last Admin: 08/30/17 09:40 Dose: 150 mg Solifenacin (Vesicare -) 5 mg PO DAILY [facility] Last Admin: 08/30/17 09:41 Dose: 5 mg A/P Acute COPD Exacerbation Chronic Hypoxic Respiratory Failure CHF HTN DM Hypercholesterolemia h/o Breast Ca - prednisone taper - inhaled bronchodilators standing and PRN - O2 to keep SpO2 >90% - glucose control while on systemic steroids - DVT prophylaxis Problem List - Problems (1) COPD exacerbation Code(s): J44.1 - CHRONIC OBSTRUCTIVE PULMONARY DISEASE W (ACUTE) EXACERBATION (2) Chronic respiratory failure with hypoxia Code(s): J96.11 - CHRONIC RESPIRATORY FAILURE WITH HYPOXIA (3) Diabetes mellitus Code(s): E11.9 - TYPE 2 DIABETES MELLITUS WITHOUT COMPLICATIONS Qualifiers: Diabetes mellitus type: type 2 Diabetes mellitus detention insulin use: without detention use (4) Hypertension Code(s): I10 - ESSENTIAL (PRIMARY) HYPERTENSION Qualifiers: Hypertension type: essential hypertension Qualified Code(s): I10 - Essential (primary) hypertension
[2017-08-30] MEDS: ALBUTEROL SO4 2.5/IPRATROPIUM 0.5 INH SOL 3 ML VIAL.NEB. NEB SCH ×2 (16:25→19:50)
[2017-08-30] MEDS: ATORVASTATIN CA 10 MG TABLET (FP) PO SCH (21:45)
[2017-08-31] MEDS: ALBUTEROL SO4 2.5/IPRATROPIUM 0.5 INH SOL 3 ML VIAL.NEB. NEB SCH ×3 (07:35→15:28)
[2017-08-31 07:59] LABS: BASO % 0.2 % (0-2.0); EOS % 1.5 % (0-4.5); HEMATOCRIT 31.8 % (32.4-45.2); HEMOGLOBIN 10.9 GM/dL (10.7-15.3); LYMPH % 20.1 % (8-40); MCH 28.9 pg (25.7-33.7); MCHC 34.3 g/dl (32.0-36.0); MEAN CELL VOLUME 84.3 fl (80-96); MEAN PLT VOLUME 9.6 fl (7.5-11.1); MONO % 9.8 % (3.8-10.2); NEUT % 68.4 % (42.8-82.8); PLATELET COUNT 121 K/MM3 (134-434); RBC 3.77 M/mm3 (3.60-5.2); RDW 15.7 % (11.6-15.6); WHITE BLOOD COUNT 9.8 K/mm3 (4.0-10.0)
[2017-08-31 08:28] LABS: ALBUMIN 3.2 g/dl (3.4-5.0); ANION GAP 9 (8-16); BLOOD UREA NITROGEN 26 mg/dL (7-18); CALCIUM 9.6 mg/dL (8.5-10.1); CHLORIDE 106 mmol/L (98-107); CO2 30 mmol/L (21-32); CREATININE 0.9 mg/dL (0.55-1.02); GLUCOSE,RANDOM 71 mg/dL (74-106); POTASSIUM 3.8 mmol/L (3.5-5.1); SGOT/AST 29 U/L (15-37); SGPT/ALT 42 U/L (12-78); SODIUM 145 mmol/L (136-145)
[2017-08-31 08:30] LABS: ALK PHOS 48 U/L (45-117); BILIRUBIN,TOTAL 0.4 mg/dL (0.2-1.0); TOT PROT 5.7 g/dl (6.4-8.2)
--- NOTE | 2017-08-31 08:31 | DS ---
Physical Examination Vital Signs: Vital Signs Temperature 98.1 F 08/31/17 06:00 Pulse Rate 81 08/31/17 06:00 Respiratory Rate 22 08/31/17 06:00 Blood Pressure 140/70 08/31/17 06:00 O2 Sat by Pulse Oximetry (%) 98 08/30/17 21:00 Constitutional: Yes: No Distress, Calm, Cachectic Eyes: Yes: EOM Intact HENT: Yes: Normocephalic Neck: Yes: Trachea Midline Cardiovascular: Yes: Regular Rate and Rhythm Respiratory: Yes: CTA Bilaterally Gastrointestinal: Yes: Normal Bowel Sounds, Soft Edema: No Peripheral Pulses WNL: Yes Neurological: Yes: WNL Psychiatric: Yes: Alert, Oriented (x2) Labs: CBC, BMP 08/31/17 06:00 Discharge Summary Reason For Visit: HYPERNATREMIA Current Active Problems COPD (chronic obstructive pulmonary disease) (Acute) COPD exacerbation (Acute) Chronic respiratory failure with hypoxia (Acute) Dehydration (Acute) Diabetes mellitus (Acute) Diarrhea (Acute) Hyperlipidemia (Acute) Hypernatremia (Acute) Hypertension (Acute) SOB (shortness of breath) (Acute) Unsteady gait (Acute) Hospital Course: admitted for acute copd exacerbation and dehydration much improved on iv steroids, O2 and nebs and gentle hydration currently on oral steoids, medically stable to dc to STR Condition: Fair - Instructions Diet, Activity, Other Instructions: taper prednisone 10 mg on .18, 5.318, then continue 5 mg daily maintenance dose Referrals: ON STAFF,NOT [Primary Care Provider] - Disposition: [facility] FACILITY - Home Medications Comprehensive Discharge Medication List: Ambulatory Orders Fluticasone/Salmeterol [Advair 250-50 Diskus] 1 each IH BID 04/03/15 Folic Acid 1 mg PO DAILY 04/03/15 Furosemide [Lasix -] 40 mg PO DAILY 04/03/15 Loratadine 10 mg PO DAILY 04/03/15 Potassium Chloride 10 meq PO DAILY 04/03/15 Simvastatin [Zocor -] 20 mg PO HS 04/03/15 Solifenacin Succinate [Vesicare] 5 mg PO DAILY 04/03/15 Gabapentin 100 mg PO DAILY 08/26/17 Losartan Potassium 25 mg PO DAILY 08/26/17 Olanzapine 5 mg PO DAILY 08/26/17 Umeclidinium Tornillo [Incruse Ellipta] 62.5 mcg IH DAILY 08/26/17 Acetaminophen [Tylenol .Regular Strength -] 325 mg PO Q6H PRN tablet 08/31/17 Albuterol 0.083% Nebulizer Wendy [Ventolin 0.083% Nebulizer Soln -] 1 amp NEB QID PRN amp 08/31/17 Ranitidine [Zantac -] 150 mg PO DAILY tablet 08/31/17 predniSONE [Deltasone -] 20 mg PO DAILY tablet 08/31/17
[2017-08-31] MEDS: FUROSEMIDE 40 MG TABLET (FP) PO SCH (09:20)
[2017-08-31] MEDS: POTASSIUM CHLORIDE ORAL LIQUID 20 MEQ/15 ML PO SCH (09:20)
[2017-08-31] MEDS: BUDESONIDE/FORMETEROL FUMARATE 80/4.5 mcg INHALER IH SCH (09:20)
[2017-08-31] MEDS: LOSARTAN POTASSIUM 25 MG TABLET PO SCH (09:20)
[2017-08-31] MEDS: OLANZapine 5 MG TABLET PO SCH (09:20)
[2017-08-31] MEDS: RANITIDINE HCL 150 MG TABLET (FP) PO SCH (09:20)
[2017-08-31] MEDS: FOLIC ACID 1 MG TABLET (FP) PO SCH (09:21)
[2017-08-31] MEDS: GABAPENTIN 100 MG CAPSULE (FP) PO SCH (09:21)
[2017-08-31] MEDS: predniSONE 20 MG TABLET (UD) PO SCH (09:21)
[2017-08-31] MEDS: LORATADINE 10 MG TABLET PO SCH (09:21)
--- NOTE | 2017-08-31 09:55 | PN ---
Progress Note (short form) - Note Progress Note: PULMONARY Feeling better today. Denies shortness of breath, cough or wheezing. Last Vital Signs Temp Pulse Resp BP Pulse Ox 98.1 F 81 22 140/70 98 08/31/17 06:00 08/31/17 06:00 08/31/17 06:00 08/31/17 06:00 08/30/17 21:00 Gen: NAD at rest Heart: RRR Lung: distant breath sounds Abd: soft, nontender Ext: no edema CBC, BMP 08/31/17 06:00 08/31/17 06:00 Active Medications Acetaminophen (Tylenol -) 325 mg PO Q6H PRN PRN Reason: PAIN Albuterol Sulfate (Ventolin 0.083% Nebulizer Soln -) 1 amp NEB QID PRN PRN Reason: SHORTNESS OF BREATH Last Admin: 08/30/17 07:16 Dose: 1 amp Albuterol/Ipratropium (Duoneb -) 1 amp NEB RQID [facility] Last Admin: 08/31/17 07:35 Dose: 1 amp Atorvastatin Calcium (Lipitor -) 10 mg PO HS [facility] Last Admin: 08/30/17 21:45 Dose: 10 mg Budesonide/Formoterol Fumarate (Symbicort 80/4.5mcg -) 2 puff IH BID [facility] Last Admin: 08/31/17 09:20 Dose: 2 puff Folic Acid (Folic Acid -) 1 mg PO DAILY [facility] Last Admin: 08/31/17 09:21 Dose: 1 mg Furosemide (Lasix -) 40 mg PO DAILY [facility] Last Admin: 08/31/17 09:20 Dose: 40 mg Gabapentin (Neurontin -) 100 mg PO DAILY [facility] Last Admin: 08/31/17 09:21 Dose: 100 mg Loratadine (Claritin -) 10 mg PO DAILY [facility] Last Admin: 08/31/17 09:21 Dose: 10 mg Losartan Potassium (Cozaar -) 25 mg PO DAILY [facility] Last Admin: 08/31/17 09:20 Dose: 25 mg Olanzapine (Zyprexa -) 5 mg PO DAILY [facility] Last Admin: 08/31/17 09:20 Dose: 5 mg Potassium Chloride (Potassium Chloride Oral Liquid) 10 meq PO DAILY [facility] Last Admin: 08/31/17 09:20 Dose: 10 meq Prednisone (Deltasone -) 20 mg PO DAILY [facility] Last Admin: 08/31/17 09:21 Dose: 20 mg Ranitidine HCl (Zantac -) 150 mg PO DAILY [facility] Last Admin: 08/31/17 09:20 Dose: 150 mg Solifenacin (Vesicare -) 5 mg PO DAILY [facility] Last Admin: 08/30/17 09:41 Dose: 5 mg A/P Acute COPD Exacerbation Chronic Hypoxic Respiratory Failure CHF HTN DM Hypercholesterolemia h/o Breast Ca - prednisone taper - inhaled bronchodilators standing and PRN - O2 to keep SpO2 >90% - glucose control while on systemic steroids - DVT prophylaxis - can be discharged from pulmonary standpoint Problem List - Problems (1) COPD exacerbation Code(s): J44.1 - CHRONIC OBSTRUCTIVE PULMONARY DISEASE W (ACUTE) EXACERBATION (2) Chronic respiratory failure with hypoxia Code(s): J96.11 - CHRONIC RESPIRATORY FAILURE WITH HYPOXIA (3) Diabetes mellitus Code(s): E11.9 - TYPE 2 DIABETES MELLITUS WITHOUT COMPLICATIONS Qualifiers: Diabetes mellitus type: type 2 Diabetes 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
[2017-08-31] MEDS ORDERED: PT OWN MED DRAWER 7, Y5N ONE (10:26)
[2017-08-31] MEDS: SOLIFENACIN SUCCINATE 5 MG TAB (FP) PO SCH (12:38)
--- NOTE | 2017-08-31 13:13 | PN ---
Progress Note, Physician History of Present Illness: Pt is an 82yo F with PMHx of DM, systolic and diastolic (low-normal LVEF) CHF with moderate-severe mitral stenosis and aortic regurgitation, mild-moderate aortic stenosis on 2018 ECHO, , asthma/COPD (2L home oxygen) and R breast excision (Apr 2017) presenting with recurrent worsening SOB x 1 week. Pt has noticed episodic SOB at rest usually relieved with albuterol nebulizer, until this morning when she continued to have SOB despite use of the nebulizer. No cough, no fevers, no increase sputum production. No leg swelling or chest pain. Yesterday, she noticed increased urinary frequency with no hematuria. No change in bowel habits. After she called EMS, she had resolution of her symptoms in the ER. Pt has no pets. She however noticed increased SOB following contact with her new aide (who owns a dog) for the past week. 08/26/17 07:34 - Current Medication List Current Medications: Active Medications Acetaminophen (Tylenol -) 325 mg PO Q6H PRN PRN Reason: PAIN Albuterol Sulfate (Ventolin 0.083% Nebulizer Soln -) 1 amp NEB QID PRN PRN Reason: SHORTNESS OF BREATH Last Admin: 08/30/17 07:16 Dose: 1 amp Albuterol/Ipratropium (Duoneb -) 1 amp NEB RQID [facility] Last Admin: 08/31/17 11:15 Dose: 1 amp Atorvastatin Calcium (Lipitor -) 10 mg PO HS [facility] Last Admin: 08/30/17 21:45 Dose: 10 mg Budesonide/Formoterol Fumarate (Symbicort 80/4.5mcg -) 2 puff IH BID [facility] Last Admin: 08/31/17 09:20 Dose: 2 puff Folic Acid (Folic Acid -) 1 mg PO DAILY [facility] Last Admin: 08/31/17 09:21 Dose: 1 mg Furosemide (Lasix -) 40 mg PO DAILY [facility] Last Admin: 08/31/17 09:20 Dose: 40 mg Gabapentin (Neurontin -) 100 mg PO DAILY [facility] Last Admin: 08/31/17 09:21 Dose: 100 mg Loratadine (Claritin -) 10 mg PO DAILY [facility] Last Admin: 08/31/17 09:21 Dose: 10 mg Losartan Potassium (Cozaar -) 25 mg PO DAILY [facility] Last Admin: 08/31/17 09:20 Dose: 25 mg Olanzapine (Zyprexa -) 5 mg PO DAILY [facility] Last Admin: 08/31/17 09:20 Dose: 5 mg Potassium Chloride (Potassium Chloride Oral Liquid) 10 meq PO DAILY [facility] Last Admin: 08/31/17 09:20 Dose: 10 meq Prednisone (Deltasone -) 20 mg PO DAILY [facility] Last Admin: 08/31/17 09:21 Dose: 20 mg Ranitidine HCl (Zantac -) 150 mg PO DAILY [facility] Last Admin: 08/31/17 09:20 Dose: 150 mg Solifenacin (Vesicare -) 5 mg PO DAILY [facility] Last Admin: 08/31/17 12:38 Dose: Not Given - Objective Vital Signs: Vital Signs Temperature 97.4 F L 08/31/17 10:00 Pulse Rate 84 08/31/17 10:00 Respiratory Rate 22 08/31/17 10:00 Blood Pressure 144/76 08/31/17 10:00 O2 Sat by Pulse Oximetry (%) 100 08/31/17 09:00 Labs: CBC, BMP 08/31/17 06:00 08/31/17 06:00
--- NOTE | 2017-08-31 13:30 | PN ---
Progress Note, Physician History of Present Illness: Pt is an 82yo F with PMHx of DM, systolic and diastolic (low-normal LVEF) CHF with moderate-severe mitral stenosis and aortic regurgitation, mild-moderate aortic stenosis on 2018 ECHO, , asthma/COPD (2L home oxygen; former smoker ), breast CA s/p R breast excision (Apr 2017), HTN, hyperlipidemia, presenting with recurrent worsening SOB x 1 week. Pt has noticed episodic SOB at rest usually relieved with albuterol nebulizer, until this morning when she continued to have SOB despite use of the nebulizer. No cough, no fevers, no increase sputum production. No leg swelling or chest pain. Yesterday, she noticed increased urinary frequency with no hematuria. No change in bowel habits. After she called EMS, she had resolution of her symptoms in the ER. Pt has no pets. She however noticed increased SOB following contact with her new aide (who owns a dog) for the past week. 08/26/17 07:34 - Current Medication List Current Medications: Active Medications Acetaminophen (Tylenol -) 325 mg PO Q6H PRN PRN Reason: PAIN Albuterol Sulfate (Ventolin 0.083% Nebulizer Soln -) 1 amp NEB QID PRN PRN Reason: SHORTNESS OF BREATH Last Admin: 08/30/17 07:16 Dose: 1 amp Albuterol/Ipratropium (Duoneb -) 1 amp NEB RQID [facility] Last Admin: 08/31/17 11:15 Dose: 1 amp Atorvastatin Calcium (Lipitor -) 10 mg PO HS [facility] Last Admin: 08/30/17 21:45 Dose: 10 mg Budesonide/Formoterol Fumarate (Symbicort 80/4.5mcg -) 2 puff IH BID [facility] Last Admin: 08/31/17 09:20 Dose: 2 puff Folic Acid (Folic Acid -) 1 mg PO DAILY [facility] Last Admin: 08/31/17 09:21 Dose: 1 mg Furosemide (Lasix -) 40 mg PO DAILY [facility] Last Admin: 08/31/17 09:20 Dose: 40 mg Gabapentin (Neurontin -) 100 mg PO DAILY [facility] Last Admin: 08/31/17 09:21 Dose: 100 mg Loratadine (Claritin -) 10 mg PO DAILY [facility] Last Admin: 08/31/17 09:21 Dose: 10 mg Losartan Potassium (Cozaar -) 25 mg PO DAILY [facility] Last Admin: 08/31/17 09:20 Dose: 25 mg Olanzapine (Zyprexa -) 5 mg PO DAILY [facility] Last Admin: 08/31/17 09:20 Dose: 5 mg Potassium Chloride (Potassium Chloride Oral Liquid) 10 meq PO DAILY [facility] Last Admin: 08/31/17 09:20 Dose: 10 meq Prednisone (Deltasone -) 20 mg PO DAILY [facility] Last Admin: 08/31/17 09:21 Dose: 20 mg Ranitidine HCl (Zantac -) 150 mg PO DAILY [facility] Last Admin: 08/31/17 09:20 Dose: 150 mg Solifenacin (Vesicare -) 5 mg PO DAILY [facility] Last Admin: 08/31/17 12:38 Dose: Not Given - Objective Vital Signs: Vital Signs Temperature 97.4 F L 08/31/17 10:00 Pulse Rate 84 08/31/17 10:00 Respiratory Rate 22 08/31/17 10:00 Blood Pressure 144/76 08/31/17 10:00 O2 Sat by Pulse Oximetry (%) 100 08/31/17 09:00 Labs: CBC, BMP 08/31/17 06:00 08/31/17 06:00
[2017-08-31 15:08] VITALS: BP 126/64; PULSE 97; TEMP 97.2
== END 2017-08-31 16:19 | DRG 191 ==
LOC: JER 06:46 → JERBED 10:39 → J7W 12:29 → OBSVTOIN 17:14 → J7W 08-27 10:22
PROVIDERS: ADMIT Internal Medicine; ATTEND Internal Medicine
DX: J44.1 Chronic obstructive pulmonary disease with (acute) exacerbation (principal); E87.0 Hyperosmolality and hypernatremia; J96.11 Chronic respiratory failure with hypoxia; I13.0 Hypertensive heart and chronic kidney disease with heart failure and stage 1 through stage 4 chronic kidney disease, or unspecified chronic kidney disease; M62.82 Rhabdomyolysis; E11.22 Type 2 diabetes mellitus with diabetic chronic kidney disease; N18.3 Chronic kidney disease, stage 3 (moderate); I50.9 Heart failure, unspecified; E86.0 Dehydration; E78.00 Pure hypercholesterolemia, unspecified; R26.81 Unsteadiness on feet; R19.7 Diarrhea, unspecified; I08.0 Rheumatic disorders of both mitral and aortic valves; Z87.891 Personal history of nicotine dependence; Z85.3 Personal history of malignant neoplasm of breast; Z99.81 Dependence on supplemental oxygen
CPT/HCPCS: 36415; 71045-TC-FY; 80053; 80162; 81003; 82550; 82553; 82962; 83880; 84484; 85025; 87077; 87086; 93005; 93010; 93306-TC; 93971-TC; 94640; 97116-GP; 97161-GP; 99284-25; G0378; J7620